=== PATIENT | male | born 1980 | race Caucasian/White ===

== ENCOUNTER → 2018-07-03 12:24 | Outpatient (CLI) | payer SELFPAY ==
--- NOTE | 2018-07-03 12:26 | DI.RAD.S_ITS ---
PROCEDURE: XR CHEST 2V INDICATIONS: shortness of breath TECHNIQUE: 2 views of the chest were acquired. COMPARISON: None. FINDINGS: Surgical changes and devices: None. Lungs and pleura: No pleural effusions or pneumothorax. Mild pulmonary vascular congestion is seen. No definite focal infiltrate. Mediastinum: Mediastinal contours are normal. Heart size is mildly enlarged. Bones and chest wall: No suspicious bony abnormalities. Soft tissues appear unremarkable. IMPRESSION: Mild congestion. No focal infiltrate, pleural effusion or pneumothorax. Dictated by: Maxx Andrew M.D. on 07/03/2018 at 12:49 Approved by: Maxx Andrew M.D. on 07/03/2018 at 12:49
== END ==
PROVIDERS: Visit Provider Physician Assistant
DX: R06.02 Shortness of breath (principal); R09.89 Other specified symptoms and signs involving the circulatory and respiratory systems
CPT/HCPCS: 71046

== ENCOUNTER → 2018-07-15 17:59 | Outpatient (CLI) | payer SELFPAY ==
[2018-07-15 19:01] LABS: Alanine Aminotransferase 23 IU/L (21-72); Albumin 4.6 g/dL (3.5-5.0); Albumin Globulin Ratio 1.8 (1.0-2.8); Alkaline Phosphatase 72 U/L (38-126); Aspartate Aminotransferase 20 IU/L (17-59); Bilirubin Total 0.2 mg/dL (0.2-1.3); Blood Urea Nitrogen 12 mg/dL (9-20); Calcium 9.6 mg/dL (8.4-10.2); Carbon Dioxide 27 mmol/L (22-32); Chloride 101 mmol/L (98-107); Estimated Glomerular Filt Rate > 60.0 mL/min (>60); Globulin 2.5 g/dL (1.7-4.1); Glucose 95 mg/dL (70-100); HEMOLYSIS < 15 (0-50); Sodium 141 mmol/L (137-145); Total Protein 7.1 g/dL (6.3-8.2)
[2018-07-15 19:04] LABS: Hematocrit 27.8 % (41-53); Mean Corpuscular HGB Conc 32.2 % (30-36); Mean Corpuscular Hemoglobin 22.6 PG (26-34); Mean Corpuscular Volume 70.2 fL (80-100); Platelet Count 280 X10^3/uL (150-400); Red Blood Cell Count 3.97 X10^6/uL (4.5-5.9); Red Cell Distribution Width 23.5 % (11.6-14.8); White Blood Cell Count 4.7 X10^3/uL (4.5-11.0)
[2018-07-15 19:13] LABS: INR 0.9 (0.9-1.3); Prothrombin Time 10.6 SECONDS (10.1-12.7)
[2018-07-15 19:16] LABS: PTT Partial Thromboplastin Tim 24 SECONDS (26.4-36.2)
[2018-07-15 19:17] LABS: HEMOLYSIS < 15 (0-50); Iron 42 ug/dL (49-181)
[2018-07-15 19:27] LABS: Percent Iron Saturation 9 % (20-50); Total Iron Binding Capacity 471 ug/dL (261-462); Transferrin 408 mg/dL (206-381)
[2018-07-15 19:42] LABS: Neutrophils Absolute Manual 2444 /uL (3000-5900); Total Cells Counted 50
[2018-07-15 19:43] LABS: Anisocytosis 3+; Hypochromasia 1+; Microcytosis 2+; Poikilocytosis 4+; Tear Drop Cells 1+
[2018-07-15 19:44] LABS: Ovalocytes 3+; Schistocytes 2+
[2018-07-15 19:48] LABS: Vitamin B12 644 pg/mL (239-931)
== END ==
PROVIDERS: Visit Provider Physician Assistant
DX: D64.9 Anemia, unspecified (principal)
CPT/HCPCS: 36415; 80053; 82607; 83540; 83550; 85025; 85610; 85730

== ENCOUNTER → 2018-07-18 12:37 | Outpatient (CLI) | payer SELFPAY ==
[2018-07-19 00:15] LABS: Ferritin 6.8 ng/mL (17.9-464)
== END ==
PROVIDERS: Visit Provider Physician Assistant
DX: D50.9 Iron deficiency anemia, unspecified (principal)
CPT/HCPCS: 82728

== ENCOUNTER → 2018-08-03 15:05 | Oncology outpatient (ONC) | payer SELFPAY ==
[2018-08-03 15:57] VITALS: BP 129/70; PULSE 64; RESP 16; TEMP 36.7; O2SAT 97
--- NOTE | 2018-08-03 16:18 | ONC.CONS ---
History of Present Illness - Data of Consult Consult date: 08/03/18 Primary Care Provider: Raquel Smith PA-C - Consult Narrative Narrative: Diagnosis: Iron deficiency anemia History of present illness: Lori Yeung is a 37 year old male who is referred for further evaluation of iron deficiency anemia. The patient reports that he had not seen a physician for many years. Over the last several months, he had notice some gradually increasing dyspnea on exertion, fatigue and weakness. 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 He felt like he was not able to do his normal activities is easily as previously. In May, he developed some worsening shortness of breath and sought medical attention. He had a chest x-ray done that showed a possible infiltrate was treated for a pneumonia with antibiotics. He then traveled [place]. While there, his symptoms did not improve and in fact worsened. He was seen at a walk-in clinic there. He had an x-ray done that appeared clear. He also had a CBC done that showed a marked anemia with a hemoglobin of 5. His white count was slightly low at 2.6. Platelets were normal. He was hospitalized and transfused 3 units of red cells. He also started taking oral iron. Other testing included normal B12 and folate. TSH was normal. He had an upper and lower endoscopy that did not disclose any source of bleeding but did show some hemorrhoids. He had an echocardiogram that was normal. At the time of his hospital discharge, his hemoglobin was around 8. He was discharged on oral iron 1 tablet daily. He did follow up with his primary physician about 2 weeks after his hospitalization and his hemoglobin was up to 9.0 with hematocrit of 27.8. His white count was normal at 4.7 and platelets were 280,000. In retrospect, he notes that he did have a little bit of a bleeding from the hemorrhoids almost daily for about 3 years. Since his hospitalization though, he has not had any further bleeding. He has been tolerating the iron well except for some mild constipation. He denies any abdominal pain or nausea. He has not been aware of any other bleeding. He has never required a transfusion prior to this. He was not taking any medications regularly. His past medical history is only notable for prior hernia repair. Family history is negative for anemia or blood dyscrasias. Social history: He is . 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 He does not smoke but does have occasional alcohol use. His only medications are iron and a multivitamin now. CC: Brandon Brady MD Home Medications and Allergies Home Medications Medication Instructions Recorded Confirmed Type ferrous sulfate 325 mg (65 mg 325 mg PO DAILY tab 07/15/18 07/18/18 History iron) tablet lysine 500 mg PO DAILY 08/03/18 08/03/18 History multivitamin 1 tab PO DAILY 08/03/18 08/03/18 History Allergies Allergy/AdvReac Type Severity Reaction Status Date / Time No Known Drug Allergies Allergy Verified 07/18/18 12:06 Medical History - Social History Smoking Status: Never smoker Review of Systems - Patient Self-Reported Symptoms SR Constitution: Fatigue/Malaise SR ears, nose, mouth, throat issues: Congestion SR Cardiovascular issues: Palpitations, Shortness of breath with activity or lying flat, Dizzy/lightheaded SR Gastrointestinal issues: Diarrhea, Blood in stool SR Musculoskeletal issues: Cold hands or feet SR Neuro issues: Headache, Lightheaded/dizzy Constitutional: no weight loss Ears, nose, mouth, throat: lightheadedness Cardiovascular: dyspnea on exertion Respiratory: shortness of breath Gastrointestinal: hemorrhoids Exam - Constitutional positive no acute distress, positive average body habitus - Routine HEENT Exam Head: Present: normocephalic, atraumatic Eye: Present: EOMI, PERRL. Absent: conjunctival icterus, scleral injection ENT: Present: mucous membranes moist, oropharynx clear, dentition normal - Routine Neck Exam Present: supple. Absent: lymphadenopathy, thyromegaly - Routine Chest/Breast/Axilla Exam Axillae: Absent: lymphadenopathy - Routine Respiratory Exam Present: Clear to auscultation bilaterally. Absent: rales, wheezes - Routine Cardiovascular Exam Present: RRR, S1, S2. Absent: murmur - Routine Abdominal Exam Present: soft, normoactive bowel sounds. Absent: tenderness, organomegaly, mass - Routine Extremities Exam Absent: cyanosis, clubbing, edema - Routine Back/Spine Exam Back/Spine: Absent: paraspinal tenderness, vertebral tenderness - Routine Skin Exam Present: intact. Absent: petechiae, rash - Routine Neurological Exam Present: alert, oriented X3 - Routine Psychiatric Exam Present: normal affect, normal thought process Results - Labs On July 15, his white count was 4.7 hemoglobin 9.0 hematocrit 27.8 with an MCV of 78 platelets were 280,000. B12 was normal. His creatinine was 0.8. In June his ferritin had been 6. Assessment and Plan (1) Iron deficiency anemia Current visit: No Status: Acute A 37-year-old man with new diagnosis of iron deficiency anemia. The cause appears to be hemorrhoidal bleeding. He did have a GI evaluation and no other cause of bleeding was seen. He appears to be responding well to oral iron and absorbing it without difficulty. Symptomaticly, he has continued to improve. Will recheck his CBC as well as a ferritin and reticulocyte count. He should continue his iron for a few months after his hemoglobin is normalized. I did make referral to general surgeon for treatment of his hemorrhoids to prevent further bleeding. He did have a transient decrease in his white count that I think was probably related to a viral infection. It seems to have resolved. I have not scheduled a follow-up appointment for him here but would be happy to see him again in the future should new questions arise.
--- NOTE | 2018-08-05 16:16 | PC.NURSE ---
Per Dr Brady, Pt was advised that H/H is improving but not quite normal yet. He requested he remain on iron with a redraw in 6-8 weeks.
== END ==
PROVIDERS: PCP Physician Assistant
DX: D50.9 Iron deficiency anemia, unspecified (principal)
CPT/HCPCS: 99204; 99214

== ENCOUNTER → 2018-08-03 16:32 | Outpatient (CLI) | payer SELFPAY ==
[2018-08-03 17:33] LABS: Add Manual Diff / Slide Review NO; Basophils Absolute Auto 100 /uL (0-100); Basophils Percent Auto 1.3 % (0-2); Eosinophils Absolute Auto 100 /uL (0-450); Eosinophils Percent Auto 1.7 % (2-4); Hemoglobin 10.9 g/dL (13.5-17.5); Lymphocytes Absolute Auto 1400 /uL (1100-4500); Lymphocytes Percent Auto 32.3 % (25-40); Mean Corpuscular HGB Conc 31.3 % (30-36); Mean Corpuscular Hemoglobin 22.9 PG (26-34); Mean Corpuscular Volume 73.2 fL (80-100); Monocytes Absolute Auto 500 /uL (0-900); Neutrophils Absolute Auto 2300 /uL (1500-7000); Neutrophils Percent Auto 52.7 % (50-75); Platelet Count 378 X10^3/uL (150-400); Red Blood Cell Count 4.78 X10^6/uL (4.5-5.9); Red Cell Distribution Width 25.3 % (11.6-14.8); White Blood Cell Count 4.4 X10^3/uL (4.5-11.0)
[2018-08-03 17:40] LABS: Reticulocyte Count, Percent 1.4 % (0.87-2.60)
[2018-08-03 17:48] LABS: Anisocytosis 3+; Helmet Cells 1; Ovalocytes 1+; Poikilocytosis 2+
[2018-08-03 18:12] LABS: Ferritin 6.9 ng/mL (17.9-464)
== END ==
PROVIDERS: PCP Physician Assistant
DX: D50.9 Iron deficiency anemia, unspecified (principal)
CPT/HCPCS: 36415; 82728; 85025; 85045

== ENCOUNTER → 2018-09-06 11:50 | Outpatient (CLI) | payer SELFPAY ==
[2018-09-06 12:28] LABS: Hematocrit 34.6 % (41-53); Hemoglobin 10.7 g/dL (13.5-17.5)
== END ==
PROVIDERS: PCP Physician Assistant; Visit Provider Physician Assistant
DX: D50.9 Iron deficiency anemia, unspecified (principal)
CPT/HCPCS: 36415; 85014; 85018

== ENCOUNTER 2018-10-20 13:37 | Day surgery (SDC) | payer SELFPAY ==
[2018-10-19 09:16] VITALS: BMI 27.7
[2018-10-20] VITALS (12 sets, daily range): BP systolic 106–118; BP diastolic 47–67; PULSE 54–69; RESP 13–20; TEMP 36.6–36.7; O2SAT 90–99; BMI 27.7
[2018-10-20] MEDS: LACTATED RINGERS 1,000 ML 42 ML IV (14:15)
--- NOTE | 2018-10-20 15:32 | PM.PREOP ---
Pre-operative Note Interval Note History & Physical reviewed/Exam performed by Physician: Yes Changes to H&P: No
[2018-10-20] MEDS: CEFOTETAN 2 GM/50 ML PIGGYBACK IV (16:08)
--- NOTE | 2018-10-20 16:20 | SUR.OPER ---
Lateral on padded OR bed, head on pillow, gel axillary roll in place, bottom leg bent with gel pad under knee to foot, upper leg straight and supported with pillows. Upper arm supported by pillows and secured over bottom arm to padded arm board. Safety belt at hip, tape over blanket lower legs.THIS POSITION FOR HEMORRHOID BANDING .
--- NOTE | 2018-10-20 16:21 | SUR.OPER ---
Supine on padded OR bed, head on pillow, arms secured on padded arm boards at <90 degrees abduction, legs uncrossed, safety belt at thigh, tape over blanket over lower legs.REPOSITIONED TO SUPINE AFTER HEMORRHOID BANDING.
[2018-10-20] MEDS: BUPIVACAINE 0.5% (PF) VIAL 30 ML INJ (16:25)
--- NOTE | 2018-10-20 17:11 | PM.OP.1 ---
Operative Date/Time/Diagnoses Date of procedure: 10/20/18 Time of procedure: 17:11 Pre-op diagnosis: Internal hemorrhoids with bleeding. left inguinal hernia reducible Post-op diagnosis: same Procedure & Clinicians Procedure: Anoscopy with hemorrhoid banding. Plug and patch repair of left inguinal hernia. Same procedure as scheduled: Yes Indications: Anemia due to hemorrhoids. Symptomatic left inguinal hernia. Surgeon: Brodie Skinner Click Yes if Unassisted: Yes Anesthesia Type: General Operative Notes Findings: Very large internal hemorrhoids. Three columns banded. Indirect left inguinal hernia with weakness of the floor. Closure Type: primary Specimen(s): none sent Prosthetic devices, grafts, tissues, transplants, or devices: Mesh Estimated Blood Loss (mL): 5 Blood products transfused: none Procedure in detail: Patient was placed supine on the operating table underwent general LMA anesthesia. He was placed in left lateral decubitus position and an anoscope inserted. Patient was noted to have multiple large hemorrhoids. Some had evidence of very friable mucosa and bleeding. I banded 3 large columns. The scope was removed. patient is placed supine on the bed. He was prepped and draped in the usual fashion for left inguinal hernia repair. Local anesthetic was infiltrated overlying the internal ring. Transverse incision was made in that region. It was carried down the level of the external oblique. The external oblique was opened parallel with its fibers through the external ring. Cord structures were elevated the cremaster open proximally. There was an indirect sac identified. It was from surrounding structures. His open found to have no contents. It was suture ligated with 2 0 silk at the level the deep epigastric vessels. the stump was allowed to retract. A small plug was placed in the defect created and it was tacked into place with interrupted Tycron sutures. the cremaster was closed with interrupted [id number] 3 0 Vicryl. Patch was placed across the floor and tacked at the pubic tubercle, the posterior lamella the anterior rectus sheath, the ileal inguinal ligament and superior and lateral the cord. The opening in the mesh had to be enlarged so as not to constrict the cord structures. the external oblique was then closed with a running 330 Vicryl. the subcu was closed with interrupted 4 0 Vicryl and skin was closed running 4 0 Vicryl subcuticular stitch and Steri-Strips. dressing was applied the testicle was pulled down and the patient was awakened taken recovery room good condition. Complications: none Condition: stable Disposition: PACU Plan for aftercare: Patient has postop follow-up
[2018-10-20] MEDS: fentaNYL 100 MCG/2 ML INJ 50 MCG IV ×2 (17:33→17:49)
--- NOTE | 2018-10-20 17:35 | SUR.PHASEI ---
report given to Jenna STEPHENSON, VSS, just medicated with 50 mcg fentanyl, will monitor.
--- NOTE | 2018-10-20 17:43 | SUR.PHASEI ---
1733: assumed care of pt. Report received from Sinai Quesada RN
[2018-10-20] MEDS: OXYCODONE/ACETAMINOPHEN 5/325 TABLET 1 TAB PO ×2 (17:53→18:24)
--- NOTE | 2018-10-20 17:58 | SUR.PHASEII ---
Pt moved to phase 2 but continued EKG monitoring until 20 min after last IV narcotic which was at 1749.
== END 2018-10-20 19:00 | disposition home or self-care (01) ==
PROVIDERS: PCP Physician Assistant; Visit Provider Specialist
PROC: (CPT 49505; principal; 2018-10-20 14:30)
PROC: 0DJD8ZZ Inspection of Lower Intestinal Tract, Via Natural or Artificial Opening Endoscopic (ICD-10-PCS; CPT 45378; 2018-10-20 14:30)
DX: K40.90 Unilateral inguinal hernia, without obstruction or gangrene, not specified as recurrent (principal); K64.8 Other hemorrhoids; D64.9 Anemia, unspecified
CPT/HCPCS: 49505; 46221; C1781; J1100; J2250; J2405; J2704; J3010

== ENCOUNTER → 2019-01-04 09:31 | Outpatient (CLI) | payer SELFPAY ==
[2019-01-04 10:32] LABS: Hematocrit 43.3 % (41-53); Hemoglobin 13.6 g/dL (13.5-17.5)
== END ==
PROVIDERS: PCP Physician Assistant; Visit Provider Specialist
DX: D50.9 Iron deficiency anemia, unspecified (principal)
CPT/HCPCS: 36415; 85014; 85018

== ENCOUNTER 2021-09-03 14:30 | Outpatient (RCR) | payer OTHER, MEDICAID, SELFPAY ==
--- NOTE | 2021-05-23 13:13 | PT.OIE ---
Current Diagnoses Brachial plexus disorders (05/23/21) Past Medical History (Last Reviewed 10/19/18 @ 15:04 by Brodie Skinner MD) Acute hemorrhoid Anemia Hernia Hx of left inguinal hernia repair Iron deficiency Past Surgical History (Last Reviewed 10/19/18 @ 15:04 by Brodie Skinner MD) Hx of left inguinal hernia repair Visit Care Team Role Provider Type Sylvie Milner ND Attending Provider Non-Staff Primary Care Provider Referring Provider Specialty: Naturopathy Address: [facility], [address] [place] [address], [facility] Email: Physical Therapy Initial Evaluation PT-OP-A Visit Information Start: 05/23/21 09:05 Freq: Status: Active Protocol: Document 05/23/21 12:37 HH (Rec: 05/23/21 13:13 HH [email or web address]) Out-Patient Physical Therapy Visit Information Visit Information Visit Type Initial Evaluation Visit Start Time 10:30 Visit Stop Time 11:15 Total Visit Minutes 45 Visit Number 08/11 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 He started experiencing radiating numbness/ tingling from his tricep, forearm to his dorsal side of the middle 3 fingers. Symptoms tend to present when he is stationary or with his arms overhead for a long period of time. He also notices significant weakness on elbow extension while doing bench press. No discomfort with sleeping. 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 He also weightlift 4 times/ wk who likes to overhead press, bench press and squat. 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 PT-OP-C Subjective Start: 05/23/21 09:05 Freq: Status: Active Protocol: Document 05/23/21 12:37 HH (Rec: 05/23/21 13:13 [email or web address]) Patient Questionnaires Quick Dash- Upper Extremity Quick Dash UE Score 15.9 Quick Dash UE Impairment 1 to 19% Impaired (Score 1-19) OP-PT Pain Assessment Location R shoulder Pain Location Details tricep to forearm Intensity 4 Scale Used Numeric (0 - 10) Description Radiating Frequency Intermittent Pain Aggravating Factors Activity PT-OP-F Manual Assessment Start: 05/23/21 09:05 Freq: Status: Active Protocol: Document 05/23/21 12:37 HH (Rec: 05/23/21 13:13 [email or web address]) Manual Assessments Soft Tissue Assessment Soft Tissue Mobility Assessment significant hypertonicty at levator scap, upper trap and teres minor. PT-OP-H Neuro Start: 05/23/21 09:05 Freq: Status: Active Protocol: Document 05/23/21 12:37 HH (Rec: 05/23/21 13:13 [email or web address]) Sensation Evaluation Gross Sensation Gross Sensation WNL Sensation Description Numbness,Tingling Dermatome Impairments C7,C8 Deep Tendon Reflex & Clonus Assessment Deep Tendon Reflex Bilateral Brachioradialis Deep Tendon Reflex 2+ Normal Bilateral Tricep Deep Tendon Reflex 2+ Normal Bilateral Bicep Deep Tendon Reflex 2+ Normal PT-OP-K Range of Motion Start: 05/23/21 09:05 Freq: Status: Active Protocol: Document 05/23/21 12:37 HH (Rec: 05/23/21 13:13 [email or web address]) Cervical Spine Range of Motion Cervical Spine Active Degrees Testing Position Sitting Flexion 63 Extension 50 Rotation Left 75 Rotation Right 55 Lateral Flexion Left 40 Lateral Flexion Right 33 ROM Limitations Pain Comments extension reproduces neuro sign end range rotation and lateral flexion to R reproduces neuro sign Shoulder Goniometric Range of Motion Shoulder Right Shoulder ROM WFL Yes Comments no symptoms Left Shoulder ROM WFL Yes Comments no symptoms PT-OP-L Special Tests Start: 05/23/21 09:05 Freq: Status: Active Protocol: Document 05/23/21 12:37 HH (Rec: 05/23/21 13:13 [email or web address]) Special Tests Cervical Spine Special Tests leela test Test Results +VE B Comments both hands gets cold and cramp . Foraminal Compression Test Results +ve Comments significant increase neuro sign to R Upper Limb Tension Test Test Results +VE Radial Comments significant increase neuro sign to R Spurling's Test Test Results +VE Comments significant increase neuro sign to R Traction Comments report of slight increased neuro sign PT-OP-M Strength Start: 05/23/21 09:05 Freq: Status: Active Protocol: Document 05/23/21 12:37 (Rec: 05/23/21 13:13 [email or web address]) Cervical Spine Strength Cervical Spine Manual Muscle Testing Comments WFL Shoulder Strength Shoulder Manual Muscle Testing Right Flexion 5 Normal Extension 5 Normal Abduction (C5) 5 Normal Adduction 5 Normal Left Flexion 5 Normal Extension 5 Normal Abduction (C5) 5 Normal Adduction 5 Normal Elbow/Forearm Strength Elbow and Forearm Manual Muscle Testing Right Flexion (C6) 5 Normal Extension (C7) 4- Good- Left Flexion (C6) 5 Normal Extension (C7) 5 Normal Wrist Strength Wrist Manual Muscle Testing Right Flexion (C7) 5 Normal Extension (C6) 5 Normal Ulnar Deviation 5 Normal Radial Deviation 5 Normal Left Flexion (C7) 5 Normal Extension (C6) 5 Normal Ulnar Deviation 5 Normal Radial Deviation 5 Normal PT-OP-Q Treatments Start: 05/23/21 09:05 Freq: Status: Active Protocol: Document 05/23/21 12:37 (Rec: 05/23/21 13:13 [email or web address]) Therapeutic Exercises Standing Exercises tennis ball release Standing Exercise Name teres minor Side right Comments for HEP levator scap stretch Side right Reps/Minutes 30 s hold x 5 Comments for HEP upper trap stretch Side right Reps/Minutes 30 s hold x 5 Comments for HEP PT-OP-T Assessment and Plan Start: 05/23/21 09:05 Freq: Status: Active Protocol: Document 05/23/21 12:37 (Rec: 05/23/21 13:13 [email or web address]) Physical Therapy Assessment Rehab Potential Rehabilitation Potential Excellent Evaluation Complexity Number of Personal Factors/Comorbidities 0 Number of Body Systems Impaired 1-2 Clinical Presentation at Evaluation Stable Impairments Impairments Functional Activities, Functional Mobility,Pain, Posture,ROM,Sensation,Soft Tissue Mobility,Strength Goals cervical ROM Impairment limited cervical ROM Short Term Goal (STG) pt will show improved cervical AROM by 10 degrees without neuro sign STG Duration 4 weeks Custodial Goal (LTG) pt will be able to look up and to the side for long period of time at work without increased symptoms LTG Duration 8 weeks neuro sign Impairment numbness/ tingling to elbow and hand Short Term Goal (STG) pt will show improved neural tension to radial nerve therefore he will not experience neuro sign while reaching overhead/ sitting. STG Duration 4 weeks Hogshead Builder Goal (LTG) pt will regain full 5/5 elbow extension strength which allows him to perform bench press 200lbs again. LTG Duration 8 weeks quickdash Impairment pt scores 15.9 on quickdash Short Term Goal (STG) pt will show improved mobility and strength to score <10 on quickdash STG Duration 4 weeks Hogshead Builder Goal (LTG) pt will show improved mobility and strength to score <5 on quickdash which allows him to perform his work duties without increased discomfort LTG Duration 8 weeks Assessment Summary Assessment Lori is a 40 yo male here for his radiating pain to R arm since this summer. Upon assessment, pt presents signs of cervical radiculopathy and brachial plexus injury possible d/t his job nature with repetitive overhead activities. He presents neuro sign with cervical closed pack position at a C7 myotome level which weaken his elbow extension 4-/5, along with tingling and numbness in radial nerve and axillary nerve pattern (posterior cord of brachial plexus). 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 Physical Therapy Plan Frequency and Duration Frequency of Treatment 1x/Week Duration of Treatment 8 weeks Plan of Care Start Date 05/23/21 Plan of Care End Date 07/22/21 Therapeutic Interventions Therapeutic Interventions Home Exercise Program,Joint Mobilizations,Manual Therapy, Neuromuscular Re-education, Patient/Caregiver Education, Self-Care/Home Management,Soft Tissue Mobilization,Taping, Therapeutic Activities, Therapeutic Exercises Modalities Cold Pack/Ice Massage,Electric Stimulation,Hot Packs, Traction- Mechanical, Ultrasound Next Visit Focus/Plan Next Note Type Treatment Note Next Visit Plan check stretches traction, nerve glide STM on teres minor, scalenes, upper trap and levator
--- NOTE | 2021-05-23 13:13 | PT.OPPOC ---
Physical, Occupational & Speech Therapy At [facility] Current Diagnoses Brachial plexus disorders (05/23/21) Visit Care Team Role Provider Type Sylvie Milner ND Attending Provider Non-Staff Primary Care Provider Referring Provider Specialty: Naturopathy Address: [facility], [address] [place] [address], [id number] Email: Plan Of Care PT-OP-T Assessment and Plan Start: 05/23/21 09:05 Freq: Status: Active Protocol: Document 05/23/21 12:37 (Rec: 05/23/21 13:13 [email or web address]) Physical Therapy Assessment Rehab Potential Rehabilitation Potential Excellent Evaluation Complexity Number of Personal Factors/Comorbidities 0 Number of Body Systems Impaired 1-2 Clinical Presentation at Evaluation Stable Impairments Impairments Functional Activities, Functional Mobility,Pain, Posture,ROM,Sensation,Soft Tissue Mobility,Strength Goals cervical ROM Impairment limited cervical ROM Short Term Goal (STG) pt will show improved cervical AROM by 10 degrees without neuro sign STG Duration 4 weeks Half-Way Goal (LTG) pt will be able to look up and to the side for long period of time at work without increased symptoms LTG Duration 8 weeks neuro sign Impairment numbness/ tingling to elbow and hand Short Term Goal (STG) pt will show improved neural tension to radial nerve therefore he will not experience neuro sign while reaching overhead/ sitting. STG Duration 4 weeks Rn Bsn Goal (LTG) pt will regain full 5/5 elbow extension strength which allows him to perform bench press 200lbs again. LTG Duration 8 weeks quickdash Impairment pt scores 15.9 on quickdash Short Term Goal (STG) pt will show improved mobility and strength to score <10 on quickdash STG Duration 4 weeks Rn Bsn Goal (LTG) pt will show improved mobility and strength to score <5 on quickdash which allows him to perform his work duties without increased discomfort LTG Duration 8 weeks Assessment Summary Assessment Lori is a 40 yo male here for his radiating pain to R arm since this summer. Upon assessment, pt presents signs of cervical radiculopathy and brachial plexus injury possible d/t his job nature with repetitive overhead activities. He presents neuro sign with cervical closed pack position at a C7 myotome level which weaken his elbow extension 4-/5, along with tingling and numbness in radial nerve and axillary nerve pattern (posterior cord of brachial plexus). 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 Physical Therapy Plan Frequency and Duration Frequency of Treatment 1x/Week Duration of Treatment 8 weeks Plan of Care Start Date 05/23/21 Plan of Care End Date 07/22/21 Therapeutic Interventions Therapeutic Interventions Home Exercise Program,Joint Mobilizations,Manual Therapy, Neuromuscular Re-education, Patient/Caregiver Education, Self-Care/Home Management,Soft Tissue Mobilization,Taping, Therapeutic Activities, Therapeutic Exercises Modalities Cold Pack/Ice Massage,Electric Stimulation,Hot Packs, Traction- Mechanical, Ultrasound Next Visit Focus/Plan Next Note Type Treatment Note Next Visit Plan check stretches traction, nerve glide STM on teres minor, scalenes, upper trap and levator Plan of Care Dates Plan of Care Start Date 05/23/21 Plan of Care End Date 07/22/21 Electronically Signed by: Chapincito Boss, PT 05/23/21 [id number] Please Sign and Return: I have reviewed this Plan of Care and certify that the skilled therapy services above are required to meet the patient?s needs. Physician Signature Date Printed Name and Credentials Clinical Instructor Signature Printed Name and Credentials
--- NOTE | 2021-05-28 12:06 | PT.OTN ---
Current Diagnoses Brachial plexus disorders (05/28/21) Physical Therapy Treatment Note PT-OP-A Visit Information Start: 05/23/21 09:05 Freq: Status: Active Protocol: Document 05/28/21 08:13 (Rec: 05/28/21 12:06 [id number]) Out-Patient Physical Therapy Visit Information Visit Information Visit Type Treatment Note Visit Start Time 09:00 Visit Stop Time 09:44 Total Visit Minutes 44 Visit Number 09/11 Number of DEHYDROGENATION CONVERTER OPERATOR Visits 0 PT-OP-B Current Condition Start: 05/23/21 09:05 Freq: Status: Active Protocol: Document 05/23/21 12:37 HH (Rec: 05/23/21 13:13 [email or web address]) Current Condition History of Current Condition Onset Date this summer Current Complaints R arm radiating pain with neuro sign History of Current Condition Radha is a 40yo male here for his radiating pain and neuro sign to R arm started this summer with no known injury. He started experiencing radiating numbness/ tingling from his tricep, forearm to his dorsal side of the middle 3 fingers. Symptoms tend to present when he is stationary or with his arms overhead for a long period of time. He also notices significant weakness on elbow extension while doing bench press. No discomfort with sleeping. 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 He also weightlift 4 times/ wk who likes to overhead press, bench press and squat. 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 PT-OP-C Subjective Start: 05/23/21 09:05 Freq: Status: Active Protocol: Document 05/28/21 08:13 (Rec: 05/28/21 12:06 [id number]) OP-PT Subjective Patient Comments Patient Comments my symptoms are around the same. Josselin been doing the stretches and it feels not bad . I still have trouble benching. I can only do 60lbs single arm bench press on my R x 5times. Patient Reported Progress Same PT-OP-F Manual Assessment Start: 05/23/21 09:05 Freq: Status: Active Protocol: Document 05/23/21 12:37 HH (Rec: 05/23/21 13:13 [email or web address]) Manual Assessments Soft Tissue Assessment Soft Tissue Mobility Assessment significant hypertonicty at levator scap, upper trap and teres minor. PT-OP-H Neuro Start: 05/23/21 09:05 Freq: Status: Active Protocol: Document 05/23/21 12:37 HH (Rec: 05/23/21 13:13 HH [email or web address]) Sensation Evaluation Gross Sensation Gross Sensation WNL Sensation Description Numbness,Tingling Dermatome Impairments C7,C8 Deep Tendon Reflex & Clonus Assessment Deep Tendon Reflex Bilateral Brachioradialis Deep Tendon Reflex 2+ Normal Bilateral Tricep Deep Tendon Reflex 2+ Normal Bilateral Bicep Deep Tendon Reflex 2+ Normal PT-OP-K Range of Motion Start: 05/23/21 09:05 Freq: Status: Active Protocol: Document 05/23/21 12:37 HH (Rec: 05/23/21 13:13 [email or web address]) Cervical Spine Range of Motion Cervical Spine Active Degrees Testing Position Sitting Flexion 63 Extension 50 Rotation Left 75 Rotation Right 55 Lateral Flexion Left 40 Lateral Flexion Right 33 ROM Limitations Pain Comments extension reproduces neuro sign end range rotation and lateral flexion to R reproduces neuro sign Shoulder Goniometric Range of Motion Shoulder Right Shoulder ROM WFL Yes Comments no symptoms Left Shoulder ROM WFL Yes Comments no symptoms PT-OP-L Special Tests Start: 05/23/21 09:05 Freq: Status: Active Protocol: Document 05/23/21 12:37 HH (Rec: 05/23/21 13:13 [email or web address]) Special Tests Cervical Spine Special Tests leela test Test Results +VE B Comments both hands gets cold and cramp . Foraminal Compression Test Results +ve Comments significant increase neuro sign to R Upper Limb Tension Test Test Results +VE Radial Comments significant increase neuro sign to R Spurling's Test Test Results +VE Comments significant increase neuro sign to R Traction Comments report of slight increased neuro sign PT-OP-M Strength Start: 05/23/21 09:05 Freq: Status: Active Protocol: Document 05/23/21 12:37 HH (Rec: 05/23/21 13:13 [email or web address]) Cervical Spine Strength Cervical Spine Manual Muscle Testing Comments WFL Shoulder Strength Shoulder Manual Muscle Testing Right Flexion 5 Normal Extension 5 Normal Abduction (C5) 5 Normal Adduction 5 Normal Left Flexion 5 Normal Extension 5 Normal Abduction (C5) 5 Normal Adduction 5 Normal Elbow/Forearm Strength Elbow and Forearm Manual Muscle Testing Right Flexion (C6) 5 Normal Extension (C7) 4- Good- Left Flexion (C6) 5 Normal Extension (C7) 5 Normal Wrist Strength Wrist Manual Muscle Testing Right Flexion (C7) 5 Normal Extension (C6) 5 Normal Ulnar Deviation 5 Normal Radial Deviation 5 Normal Left Flexion (C7) 5 Normal Extension (C6) 5 Normal Ulnar Deviation 5 Normal Radial Deviation 5 Normal PT-OP-Q Treatments Start: 05/23/21 09:05 Freq: Status: Active Protocol: Document 05/28/21 08:13 (Rec: 05/28/21 12:06 [id number]) Therapeutic Exercises Supine Exercises chin tuck Reps/Minutes 10 x2 Comments for hep Standing Exercises radial nerve glide Side right Reps/Minutes 10 x1 Comments for HEP levator scap stretch Side right Reps/Minutes 30 s hold x 5 Comments for HEP upper trap stretch Side right Reps/Minutes 30 s hold x 5 Comments for HEP Manual Therapy Treatment Soft Tissue Mobilization RTC Body Location teres minor Mobilization Type Myofascial Release,Sustained Pressure,Trigger Point Release Intensity/Depth Moderate Body Position Supine Comments significant pain with neuro sign UT, levator Body Location +scalene Mobilization Type Myofascial Release,Sustained Pressure,Trigger Point Release Intensity/Depth Moderate Body Position Supine Comments mod pain with neuro sign suboccipital Mobilization Type Myofascial Release,Sustained Pressure,Trigger Point Release Intensity/Depth Moderate Body Position Supine Comments mod pain with neuro sign Manual Traction Cervical Body Position Supine Reps/Duration 10 s hold x10 Comments pt reports minimal neuro sign and relief Taping R shoulder Treatment Focus to provide stability Type of Tape Kinesio Tape Comments 3 I strips across shoulder joint, anchor from pecs, RTC and UT Nerve Glides radial nerve glide Nerve manual Body Position Supine PT-OP-T Assessment and Plan Start: 05/23/21 09:05 Freq: Status: Active Protocol: Document 05/28/21 08:13 (Rec: 05/28/21 12:06 [id number]) Physical Therapy Assessment Goals cervical ROM Impairment limited cervical ROM Short Term Goal (STG) pt will show improved cervical AROM by 10 degrees without neuro sign STG Duration 4 weeks Apparatus Repair Mechanic Goal (LTG) pt will be able to look up and to the side for long period of time at work without increased symptoms LTG Duration 8 weeks neuro sign Impairment numbness/ tingling to elbow and hand Short Term Goal (STG) pt will show improved neural tension to radial nerve therefore he will not experience neuro sign while reaching overhead/ sitting. STG Duration 4 weeks Jail Goal (LTG) pt will regain full 5/5 elbow extension strength which allows him to perform bench press 200lbs again. LTG Duration 8 weeks quickdash Impairment pt scores 15.9 on quickdash Short Term Goal (STG) pt will show improved mobility and strength to score <10 on quickdash STG Duration 4 weeks Jail Goal (LTG) pt will show improved mobility and strength to score <5 on quickdash which allows him to perform his work duties without increased discomfort LTG Duration 8 weeks Assessment Summary Assessment pt reports his symptoms get worse with stationary position . I do notice his neuro signs increases with any cervical movement, and traction of his R arm but resolve when his arm is supported/ in supine. He does find relief with cervical traction and STM at teres minor. might add prone elbow extension next time. Physical Therapy Plan Frequency and Duration Frequency of Treatment 1x/Week Duration of Treatment 8 weeks Plan of Care Start Date 05/23/21 Plan of Care End Date 07/22/21 Therapeutic Interventions Therapeutic Interventions Home Exercise Program,Joint Mobilizations,Manual Therapy, Neuromuscular Re-education, Patient/Caregiver Education, Self-Care/Home Management,Soft Tissue Mobilization,Taping, Therapeutic Activities, Therapeutic Exercises Modalities Cold Pack/Ice Massage,Electric Stimulation,Hot Packs, Traction- Mechanical, Ultrasound Next Visit Focus/Plan Next Note Type Treatment Note Next Visit Plan check stretches traction, nerve glide STM on teres minor, scalenes, upper trap and levator
--- NOTE | 2021-06-04 12:18 | PT.OTN ---
Current Diagnoses Brachial plexus disorders (06/04/21) Physical Therapy Treatment Note PT-OP-A Visit Information Start: 05/23/21 09:05 Freq: Status: Active Protocol: Document 06/04/21 09:04 (Rec: 06/04/21 12:18 [id number]) Out-Patient Physical Therapy Visit Information Visit Information Visit Type Treatment Note Visit Start Time 09:45 Visit Stop Time 10:30 Total Visit Minutes 45 Visit Number 3 Number of GENERAL OPERATOR Visits 0 PT-OP-B Current Condition Start: 05/23/21 09:05 Freq: Status: Active Protocol: Document 05/23/21 12:37 HH (Rec: 05/23/21 13:13 [email or web address]) Current Condition History of Current Condition Onset Date this summer Current Complaints R arm radiating pain with neuro sign History of Current Condition Radha is a 40yo male here for his radiating pain and neuro sign to R arm started this summer with no known injury. He started experiencing radiating numbness/ tingling from his tricep, forearm to his dorsal side of the middle 3 fingers. Symptoms tend to present when he is stationary or with his arms overhead for a long period of time. He also notices significant weakness on elbow extension while doing bench press. No discomfort with sleeping. 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 He also weightlift 4 times/ wk who likes to overhead press, bench press and squat. 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 PT-OP-C Subjective Start: 05/23/21 09:05 Freq: Status: Active Protocol: Document 06/04/21 09:04 (Rec: 06/04/21 12:18 [id number]) OP-PT Subjective Patient Comments Patient Comments I got a new baby. The stretches give me temporary relief but it usually comes back within an hour or two. The tape seems to help. Patient Reported Progress Improving PT-OP-F Manual Assessment Start: 05/23/21 09:05 Freq: Status: Active Protocol: Document 05/23/21 12:37 HH (Rec: 05/23/21 13:13 [email or web address]) Manual Assessments Soft Tissue Assessment Soft Tissue Mobility Assessment significant hypertonicty at levator scap, upper trap and teres minor. PT-OP-H Neuro Start: 05/23/21 09:05 Freq: Status: Active Protocol: Document 05/23/21 12:37 HH (Rec: 05/23/21 13:13 HH [email or web address]) Sensation Evaluation Gross Sensation Gross Sensation WNL Sensation Description Numbness,Tingling Dermatome Impairments C7,C8 Deep Tendon Reflex & Clonus Assessment Deep Tendon Reflex Bilateral Brachioradialis Deep Tendon Reflex 2+ Normal Bilateral Tricep Deep Tendon Reflex 2+ Normal Bilateral Bicep Deep Tendon Reflex 2+ Normal PT-OP-K Range of Motion Start: 05/23/21 09:05 Freq: Status: Active Protocol: Document 05/23/21 12:37 HH (Rec: 05/23/21 13:13 HH [email or web address]) Cervical Spine Range of Motion Cervical Spine Active Degrees Testing Position Sitting Flexion 63 Extension 50 Rotation Left 75 Rotation Right 55 Lateral Flexion Left 40 Lateral Flexion Right 33 ROM Limitations Pain Comments extension reproduces neuro sign end range rotation and lateral flexion to R reproduces neuro sign Shoulder Goniometric Range of Motion Shoulder Right Shoulder ROM WFL Yes Comments no symptoms Left Shoulder ROM WFL Yes Comments no symptoms PT-OP-L Special Tests Start: 05/23/21 09:05 Freq: Status: Active Protocol: Document 05/23/21 12:37 HH (Rec: 05/23/21 13:13 [email or web address]) Special Tests Cervical Spine Special Tests leela test Test Results +VE B Comments both hands gets cold and cramp . Foraminal Compression Test Results +ve Comments significant increase neuro sign to R Upper Limb Tension Test Test Results +VE Radial Comments significant increase neuro sign to R Spurling's Test Test Results +VE Comments significant increase neuro sign to R Traction Comments report of slight increased neuro sign PT-OP-M Strength Start: 05/23/21 09:05 Freq: Status: Active Protocol: Document 05/23/21 12:37 HH (Rec: 05/23/21 13:13 HH [email or web address]) Cervical Spine Strength Cervical Spine Manual Muscle Testing Comments WFL Shoulder Strength Shoulder Manual Muscle Testing Right Flexion 5 Normal Extension 5 Normal Abduction (C5) 5 Normal Adduction 5 Normal Left Flexion 5 Normal Extension 5 Normal Abduction (C5) 5 Normal Adduction 5 Normal Elbow/Forearm Strength Elbow and Forearm Manual Muscle Testing Right Flexion (C6) 5 Normal Extension (C7) 4- Good- Left Flexion (C6) 5 Normal Extension (C7) 5 Normal Wrist Strength Wrist Manual Muscle Testing Right Flexion (C7) 5 Normal Extension (C6) 5 Normal Ulnar Deviation 5 Normal Radial Deviation 5 Normal Left Flexion (C7) 5 Normal Extension (C6) 5 Normal Ulnar Deviation 5 Normal Radial Deviation 5 Normal PT-OP-Q Treatments Start: 05/23/21 09:05 Freq: Status: Active Protocol: Document 06/04/21 09:04 (Rec: 06/04/21 12:18 [id number]) Therapeutic Exercises Supine Exercises chin tuck Reps/Minutes 20x5 Comments for hep Sidelying Exercises open book Reps/Minutes 10x2 Comments for HEP, limited trunk rotation to R Standing Exercises suboccipital stretch Reps/Minutes 20s x 5 Comments for HEP, does report radiating symptoms Manual Therapy Treatment Soft Tissue Mobilization RTC Body Location teres minor Mobilization Type Myofascial Release,Sustained Pressure,Trigger Point Release Intensity/Depth Moderate Body Position Supine Comments significant pain with neuro sign UT, levator Body Location +scalene Mobilization Type Myofascial Release,Sustained Pressure,Trigger Point Release Intensity/Depth Moderate Body Position Supine Comments mod pain with neuro sign suboccipital Mobilization Type Myofascial Release,Sustained Pressure,Trigger Point Release Intensity/Depth Moderate Body Position Supine Comments mod pain with neuro sign Joint Mobilizations PA mob Joint T1-T4, PA and UPA Direction PA Grade II Body Position Prone Comments significant pain with radiating symptoms at T2-T4, but reduce after Manual Traction Cervical Body Position Supine Reps/Duration 10 s hold x10 Comments pt reports minimal neuro sign and relief consistently. Taping R shoulder Treatment Focus to provide stability Type of Tape Kinesio Tape Comments 3 I strips across shoulder joint, anchor from pecs, RTC and UT PT-OP-T Assessment and Plan Start: 05/23/21 09:05 Freq: Status: Active Protocol: Document 06/04/21 09:04 (Rec: 06/04/21 12:18 [id number]) Physical Therapy Assessment Goals cervical ROM Impairment limited cervical ROM Short Term Goal (STG) pt will show improved cervical AROM by 10 degrees without neuro sign STG Duration 4 weeks Penitentiary Goal (LTG) pt will be able to look up and to the side for long period of time at work without increased symptoms LTG Duration 8 weeks neuro sign Impairment numbness/ tingling to elbow and hand Short Term Goal (STG) pt will show improved neural tension to radial nerve therefore he will not experience neuro sign while reaching overhead/ sitting. STG Duration 4 weeks Concrete Block Molder Goal (LTG) pt will regain full 5/5 elbow extension strength which allows him to perform bench press 200lbs again. LTG Duration 8 weeks quickdash Impairment pt scores 15.9 on quickdash Short Term Goal (STG) pt will show improved mobility and strength to score <10 on quickdash STG Duration 4 weeks Penitentiary Goal (LTG) pt will show improved mobility and strength to score <5 on quickdash which allows him to perform his work duties without increased discomfort LTG Duration 8 weeks Assessment Summary Assessment pt reports his stretches gave him temporary relief only. Further assessment today shows he has very limited thoracic rotation to R with significant pain to R shoulder and hand. Traction gives him long lasting relief. Added chin tuck, chin tuck stretch and open book to his HEP. Physical Therapy Plan Frequency and Duration Frequency of Treatment 1x/Week Duration of Treatment 8 weeks Plan of Care Start Date 05/23/21 Plan of Care End Date 07/22/21 Therapeutic Interventions Therapeutic Interventions Home Exercise Program,Joint Mobilizations,Manual Therapy, Neuromuscular Re-education, Patient/Caregiver Education, Self-Care/Home Management,Soft Tissue Mobilization,Taping, Therapeutic Activities, Therapeutic Exercises Modalities Cold Pack/Ice Massage,Electric Stimulation,Hot Packs, Traction- Mechanical, Ultrasound Next Visit Focus/Plan Next Note Type Treatment Note Next Visit Plan check stretches traction, nerve glide STM on teres minor, scalenes, upper trap and levator
--- NOTE | 2021-06-18 10:37 | PT.OTN ---
Current Diagnoses Brachial plexus disorders (06/18/21) Physical Therapy Treatment Note PT-OP-A Visit Information Start: 05/23/21 09:05 Freq: Status: Active Protocol: Document 06/18/21 09:49 (Rec: 06/18/21 10:37 [id number]) Out-Patient Physical Therapy Visit Information Visit Information Visit Type Treatment Note Visit Start Time 09:46 Visit Stop Time 10:30 Total Visit Minutes 44 Visit Number 11/09 Number of HIDE MEASURING MACHINE OPERATOR Visits 0 PT-OP-B Current Condition Start: 05/23/21 09:05 Freq: Status: Active Protocol: Document 05/23/21 12:37 HH (Rec: 05/23/21 13:13 [email or web address]) Current Condition History of Current Condition Onset Date this summer Current Complaints R arm radiating pain with neuro sign History of Current Condition Radha is a 40yo male here for his radiating pain and neuro sign to R arm started this summer with no known injury. He started experiencing radiating numbness/ tingling from his tricep, forearm to his dorsal side of the middle 3 fingers. Symptoms tend to present when he is stationary or with his arms overhead for a long period of time. He also notices significant weakness on elbow extension while doing bench press. No discomfort with sleeping. 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 He also weightlift 4 times/ wk who likes to overhead press, bench press and squat. 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 PT-OP-C Subjective Start: 05/23/21 09:05 Freq: Status: Active Protocol: Document 06/18/21 09:49 HH (Rec: 06/18/21 10:37 [id number]) OP-PT Subjective Patient Comments Patient Comments I started noticing good improvements. My tingling and numbness is almost gone. Patient Reported Progress Improving PT-OP-F Manual Assessment Start: 05/23/21 09:05 Freq: Status: Active Protocol: Document 05/23/21 12:37 HH (Rec: 05/23/21 13:13 [email or web address]) Manual Assessments Soft Tissue Assessment Soft Tissue Mobility Assessment significant hypertonicty at levator scap, upper trap and teres minor. PT-OP-H Neuro Start: 05/23/21 09:05 Freq: Status: Active Protocol: Document 05/23/21 12:37 HH (Rec: 05/23/21 13:13 [email or web address]) Sensation Evaluation Gross Sensation Gross Sensation WNL Sensation Description Numbness,Tingling Dermatome Impairments C7,C8 Deep Tendon Reflex & Clonus Assessment Deep Tendon Reflex Bilateral Brachioradialis Deep Tendon Reflex 2+ Normal Bilateral Tricep Deep Tendon Reflex 2+ Normal Bilateral Bicep Deep Tendon Reflex 2+ Normal PT-OP-K Range of Motion Start: 05/23/21 09:05 Freq: Status: Active Protocol: Document 05/23/21 12:37 HH (Rec: 05/23/21 13:13 [email or web address]) Cervical Spine Range of Motion Cervical Spine Active Degrees Testing Position Sitting Flexion 63 Extension 50 Rotation Left 75 Rotation Right 55 Lateral Flexion Left 40 Lateral Flexion Right 33 ROM Limitations Pain Comments extension reproduces neuro sign end range rotation and lateral flexion to R reproduces neuro sign Shoulder Goniometric Range of Motion Shoulder Right Shoulder ROM WFL Yes Comments no symptoms Left Shoulder ROM WFL Yes Comments no symptoms PT-OP-L Special Tests Start: 05/23/21 09:05 Freq: Status: Active Protocol: Document 05/23/21 12:37 HH (Rec: 05/23/21 13:13 [email or web address]) Special Tests Cervical Spine Special Tests leela test Test Results +VE B Comments both hands gets cold and cramp . Foraminal Compression Test Results +ve Comments significant increase neuro sign to R Upper Limb Tension Test Test Results +VE Radial Comments significant increase neuro sign to R Spurling's Test Test Results +VE Comments significant increase neuro sign to R Traction Comments report of slight increased neuro sign PT-OP-M Strength Start: 05/23/21 09:05 Freq: Status: Active Protocol: Document 05/23/21 12:37 HH (Rec: 05/23/21 13:13 [email or web address]) Cervical Spine Strength Cervical Spine Manual Muscle Testing Comments WFL Shoulder Strength Shoulder Manual Muscle Testing Right Flexion 5 Normal Extension 5 Normal Abduction (C5) 5 Normal Adduction 5 Normal Left Flexion 5 Normal Extension 5 Normal Abduction (C5) 5 Normal Adduction 5 Normal Elbow/Forearm Strength Elbow and Forearm Manual Muscle Testing Right Flexion (C6) 5 Normal Extension (C7) 4- Good- Left Flexion (C6) 5 Normal Extension (C7) 5 Normal Wrist Strength Wrist Manual Muscle Testing Right Flexion (C7) 5 Normal Extension (C6) 5 Normal Ulnar Deviation 5 Normal Radial Deviation 5 Normal Left Flexion (C7) 5 Normal Extension (C6) 5 Normal Ulnar Deviation 5 Normal Radial Deviation 5 Normal PT-OP-Q Treatments Start: 05/23/21 09:05 Freq: Status: Active Protocol: Document 06/18/21 09:49 (Rec: 06/18/21 10:37 [id number]) Therapeutic Exercises Supine Exercises T/s extension Equipment Used foam roller Reps/Minutes 10x2 Comments for HEP chin tuck Reps/Minutes 20x5 Comments for hep Sidelying Exercises foam roller on lat Side right Reps/Minutes 10x2 Comments for HEP open book Sidelying Exercise Name full version Reps/Minutes 10x2 Comments for HEP Standing Exercises suboccipital stretch Reps/Minutes 20s x 5 Comments for HEP, does report radiating symptoms Manual Therapy Treatment Soft Tissue Mobilization RTC Body Location teres minor Mobilization Type Myofascial Release,Sustained Pressure,Trigger Point Release Intensity/Depth Moderate Body Position Supine Comments significant pain with neuro sign UT, levator Body Location +scalene Mobilization Type Myofascial Release,Sustained Pressure,Trigger Point Release Intensity/Depth Moderate Body Position Supine Comments mod pain with neuro sign suboccipital Mobilization Type Myofascial Release,Sustained Pressure,Trigger Point Release Intensity/Depth Moderate Body Position Supine Comments mod pain with neuro sign Joint Mobilizations PA mob Joint T1-T4, PA and UPA Direction PA Grade II Body Position Prone Comments significant pain with radiating symptoms at T2-T4, but reduce after PT-OP-T Assessment and Plan Start: 05/23/21 09:05 Freq: Status: Active Protocol: Document 06/18/21 09:49 (Rec: 06/18/21 10:37 [id number]) Physical Therapy Assessment Rehab Potential Rehabilitation Potential Excellent Evaluation Complexity Number of Personal Factors/Comorbidities 0 Number of Body Systems Impaired 1-2 Clinical Presentation at Evaluation Stable Impairments Impairments Functional Activities, Functional Mobility,Pain, Posture,ROM,Sensation,Soft Tissue Mobility,Strength Goals cervical ROM Impairment limited cervical ROM Short Term Goal (STG) pt will show improved cervical AROM by 10 degrees without neuro sign STG Duration 4 weeks Boxing And Pressing Supervisor Goal (LTG) pt will be able to look up and to the side for long period of time at work without increased symptoms LTG Duration 8 weeks neuro sign Impairment numbness/ tingling to elbow and hand Short Term Goal (STG) pt will show improved neural tension to radial nerve therefore he will not experience neuro sign while reaching overhead/ sitting. STG Duration 4 weeks Group Home Goal (LTG) pt will regain full 5/5 elbow extension strength which allows him to perform bench press 200lbs again. LTG Duration 8 weeks quickdash Impairment pt scores 15.9 on quickdash Short Term Goal (STG) pt will show improved mobility and strength to score <10 on quickdash STG Duration 4 weeks Group Home Goal (LTG) pt will show improved mobility and strength to score <5 on quickdash which allows him to perform his work duties without increased discomfort LTG Duration 8 weeks Assessment Summary Assessment pt reports his tingling and numbness have improved a lot who only has them occasionally but not everyday. Modified his suboccipital stretch and added supine thoracic extension with foam roller and lat roller. Also added isolated tricep extension. Physical Therapy Plan Frequency and Duration Frequency of Treatment 1x/Week Duration of Treatment 8 weeks Plan of Care Start Date 05/23/21 Plan of Care End Date 07/22/21 Therapeutic Interventions Therapeutic Interventions Home Exercise Program,Joint Mobilizations,Manual Therapy, Neuromuscular Re-education, Patient/Caregiver Education, Self-Care/Home Management,Soft Tissue Mobilization,Taping, Therapeutic Activities, Therapeutic Exercises Modalities Cold Pack/Ice Massage,Electric Stimulation,Hot Packs, Traction- Mechanical, Ultrasound Next Visit Focus/Plan Next Note Type Treatment Note Next Visit Plan check stretches traction, nerve glide STM on teres minor, scalenes, upper trap and levator
--- NOTE | 2021-06-24 09:58 | PT.OTN ---
Current Diagnoses Brachial plexus disorders (06/24/21) Physical Therapy Treatment Note PT-OP-A Visit Information Start: 05/23/21 09:05 Freq: Status: Active Protocol: Document 06/24/21 09:07 (Rec: 06/24/21 09:57 [id number]) Out-Patient Physical Therapy Visit Information Visit Information Visit Type Treatment Note Visit Start Time 09:03 Visit Stop Time 09:45 Total Visit Minutes 43 Visit Number 12/09 Number of CHEMICAL PROCESSING SUPERVISOR Visits 0 PT-OP-B Current Condition Start: 05/23/21 09:05 Freq: Status: Active Protocol: Document 05/23/21 12:37 HH (Rec: 05/23/21 13:13 [email or web address]) Current Condition History of Current Condition Onset Date this summer Current Complaints R arm radiating pain with neuro sign History of Current Condition Radha is a 40yo male here for his radiating pain and neuro sign to R arm started this summer with no known injury. He started experiencing radiating numbness/ tingling from his tricep, forearm to his dorsal side of the middle 3 fingers. Symptoms tend to present when he is stationary or with his arms overhead for a long period of time. He also notices significant weakness on elbow extension while doing bench press. No discomfort with sleeping. 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 He also weightlift 4 times/ wk who likes to overhead press, bench press and squat. 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 PT-OP-C Subjective Start: 05/23/21 09:05 Freq: Status: Active Protocol: Document 06/24/21 09:07 (Rec: 06/24/21 09:57 [id number]) OP-PT Subjective Patient Comments Patient Comments Josselin been feeling very good. I only had the tingling sensation towards the end of the day. However, I have a heavy labor this week so It might be hard on me Patient Reported Progress Improving PT-OP-F Manual Assessment Start: 05/23/21 09:05 Freq: Status: Active Protocol: Document 05/23/21 12:37 (Rec: 05/23/21 13:13 [email or web address]) Manual Assessments Soft Tissue Assessment Soft Tissue Mobility Assessment significant hypertonicty at levator scap, upper trap and teres minor. PT-OP-H Neuro Start: 05/23/21 09:05 Freq: Status: Active Protocol: Document 05/23/21 12:37 HH (Rec: 05/23/21 13:13 [email or web address]) Sensation Evaluation Gross Sensation Gross Sensation WNL Sensation Description Numbness,Tingling Dermatome Impairments C7,C8 Deep Tendon Reflex & Clonus Assessment Deep Tendon Reflex Bilateral Brachioradialis Deep Tendon Reflex 2+ Normal Bilateral Tricep Deep Tendon Reflex 2+ Normal Bilateral Bicep Deep Tendon Reflex 2+ Normal PT-OP-K Range of Motion Start: 05/23/21 09:05 Freq: Status: Active Protocol: Document 05/23/21 12:37 HH (Rec: 05/23/21 13:13 [email or web address]) Cervical Spine Range of Motion Cervical Spine Active Degrees Testing Position Sitting Flexion 63 Extension 50 Rotation Left 75 Rotation Right 55 Lateral Flexion Left 40 Lateral Flexion Right 33 ROM Limitations Pain Comments extension reproduces neuro sign end range rotation and lateral flexion to R reproduces neuro sign Shoulder Goniometric Range of Motion Shoulder Right Shoulder ROM WFL Yes Comments no symptoms Left Shoulder ROM WFL Yes Comments no symptoms PT-OP-L Special Tests Start: 05/23/21 09:05 Freq: Status: Active Protocol: Document 05/23/21 12:37 HH (Rec: 05/23/21 13:13 [email or web address]) Special Tests Cervical Spine Special Tests leela test Test Results +VE B Comments both hands gets cold and cramp . Foraminal Compression Test Results +ve Comments significant increase neuro sign to R Upper Limb Tension Test Test Results +VE Radial Comments significant increase neuro sign to R Spurling's Test Test Results +VE Comments significant increase neuro sign to R Traction Comments report of slight increased neuro sign PT-OP-M Strength Start: 05/23/21 09:05 Freq: Status: Active Protocol: Document 05/23/21 12:37 HH (Rec: 05/23/21 13:13 [email or web address]) Cervical Spine Strength Cervical Spine Manual Muscle Testing Comments WFL Shoulder Strength Shoulder Manual Muscle Testing Right Flexion 5 Normal Extension 5 Normal Abduction (C5) 5 Normal Adduction 5 Normal Left Flexion 5 Normal Extension 5 Normal Abduction (C5) 5 Normal Adduction 5 Normal Elbow/Forearm Strength Elbow and Forearm Manual Muscle Testing Right Flexion (C6) 5 Normal Extension (C7) 4- Good- Left Flexion (C6) 5 Normal Extension (C7) 5 Normal Wrist Strength Wrist Manual Muscle Testing Right Flexion (C7) 5 Normal Extension (C6) 5 Normal Ulnar Deviation 5 Normal Radial Deviation 5 Normal Left Flexion (C7) 5 Normal Extension (C6) 5 Normal Ulnar Deviation 5 Normal Radial Deviation 5 Normal PT-OP-Q Treatments Start: 05/23/21 09:05 Freq: Status: Active Protocol: Document 06/24/21 09:07 (Rec: 06/24/21 09:57 [id number]) Therapeutic Exercises Supine Exercises T/s extension Supine Exercise Name cues on T/S extension Equipment Used foam roller Reps/Minutes 10x2 Comments for HEP Prone Exercises cat camel Reps/Minutes 10 x2 Comments cues on thoracic extension Sidelying Exercises open book Sidelying Exercise Name full version, cues on T/S rotation focus Reps/Minutes 10x2 Comments for HEP Standing Exercises suboccipital stretch Standing Exercise Name + L cervical rotation to bias R suboccipital Reps/Minutes 20s x 5 Comments for HEP, does report radiating symptoms Manual Therapy Treatment Soft Tissue Mobilization suboccipital Body Location R Mobilization Type Myofascial Release,Sustained Pressure,Trigger Point Release Intensity/Depth Moderate Body Position Supine Comments mod pain with no neuro sign Joint Mobilizations PA mob Joint T1-T4, PA and UPA Direction PA Grade II Body Position Prone Comments reduced pain Manual Traction Cervical Body Position Supine Reps/Duration 10 s hold x10 Comments pt reports minimal neuro sign and relief consistently. PT-OP-T Assessment and Plan Start: 05/23/21 09:05 Freq: Status: Active Protocol: Document 06/24/21 09:07 (Rec: 06/24/21 09:57 [id number]) Physical Therapy Assessment Goals cervical ROM Impairment limited cervical ROM Short Term Goal (STG) pt will show improved cervical AROM by 10 degrees without neuro sign STG Duration 4 weeks Skilled Nursing Goal (LTG) pt will be able to look up and to the side for long period of time at work without increased symptoms LTG Duration 8 weeks neuro sign Impairment numbness/ tingling to elbow and hand Short Term Goal (STG) pt will show improved neural tension to radial nerve therefore he will not experience neuro sign while reaching overhead/ sitting. STG Duration 4 weeks Cupola Man Goal (LTG) pt will regain full 5/5 elbow extension strength which allows him to perform bench press 200lbs again. LTG Duration 8 weeks quickdash Impairment pt scores 15.9 on quickdash Short Term Goal (STG) pt will show improved mobility and strength to score <10 on quickdash STG Duration 4 weeks Skilled Nursing Goal (LTG) pt will show improved mobility and strength to score <5 on quickdash which allows him to perform his work duties without increased discomfort LTG Duration 8 weeks Assessment Summary Assessment pt is consistently getting better with decreased neuro sign and regain some tricep extension strength. However, he is going to have a intense labor week which might aggravate his symptoms. Educated him to focus on engaging upper trunk movements and gave im a pre work routine. Possible DC after next visit.. Physical Therapy Plan Frequency and Duration Frequency of Treatment 1x/Week Duration of Treatment 8 weeks Plan of Care Start Date 05/23/21 Plan of Care End Date 07/22/21 Therapeutic Interventions Therapeutic Interventions Home Exercise Program,Joint Mobilizations,Manual Therapy, Neuromuscular Re-education, Patient/Caregiver Education, Self-Care/Home Management,Soft Tissue Mobilization,Taping, Therapeutic Activities, Therapeutic Exercises Modalities Cold Pack/Ice Massage,Electric Stimulation,Hot Packs, Traction- Mechanical, Ultrasound Next Visit Focus/Plan Next Note Type Treatment Note Next Visit Plan check stretches open book, cat camel focus on t/s movement
--- NOTE | 2021-07-01 16:38 | PT.OTN ---
Current Diagnoses Brachial plexus disorders (07/01/21) Physical Therapy Treatment Note PT-OP-A Visit Information Start: 05/23/21 09:05 Freq: Status: Active Protocol: Document 07/01/21 14:11 [facility] (Rec: 07/01/21 16:37 [facility] [id number]) Out-Patient Physical Therapy Visit Information Visit Information Visit Type Treatment Note Visit Start Time 14:32 Visit Stop Time 15:20 Total Visit Minutes 48 Visit Number 01/09 Number of FRANCHISE SALES REPRESENTATIVE Visits 0 PT-OP-B Current Condition Start: 05/23/21 09:05 Freq: Status: Active Protocol: Document 05/23/21 12:37 (Rec: 05/23/21 13:13 HH [email or web address]) Current Condition History of Current Condition Onset Date this summer Current Complaints R arm radiating pain with neuro sign History of Current Condition Radha is a 40yo male here for his radiating pain and neuro sign to R arm started this summer with no known injury. He started experiencing radiating numbness/ tingling from his tricep, forearm to his dorsal side of the middle 3 fingers. Symptoms tend to present when he is stationary or with his arms overhead for a long period of time. He also notices significant weakness on elbow extension while doing bench press. No discomfort with sleeping. 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 He also weightlift 4 times/ wk who likes to overhead press, bench press and squat. 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 PT-OP-C Subjective Start: 05/23/21 09:05 Freq: Status: Active Protocol: Document 07/01/21 14:11 [facility] (Rec: 07/01/21 16:37 [facility] [id number]) OP-PT Subjective Patient Comments Patient Comments Pt reports he is doing well and has symptoms mostly after long days or at the end of the day only especially if he doens't get a chance to stretch Patient Reported Progress Improving PT-OP-F Manual Assessment Start: 05/23/21 09:05 Freq: Status: Active Protocol: Document 05/23/21 12:37 HH (Rec: 05/23/21 13:13 HH [email or web address]) Manual Assessments Soft Tissue Assessment Soft Tissue Mobility Assessment significant hypertonicty at levator scap, upper trap and teres minor. PT-OP-H Neuro Start: 05/23/21 09:05 Freq: Status: Active Protocol: Document 05/23/21 12:37 (Rec: 05/23/21 13:13 [email or web address]) Sensation Evaluation Gross Sensation Gross Sensation WNL Sensation Description Numbness,Tingling Dermatome Impairments C7,C8 Deep Tendon Reflex & Clonus Assessment Deep Tendon Reflex Bilateral Brachioradialis Deep Tendon Reflex 2+ Normal Bilateral Tricep Deep Tendon Reflex 2+ Normal Bilateral Bicep Deep Tendon Reflex 2+ Normal PT-OP-K Range of Motion Start: 05/23/21 09:05 Freq: Status: Active Protocol: Document 07/01/21 14:11 [facility] (Rec: 07/01/21 16:37 [facility] [id number]) Cervical Spine Range of Motion Cervical Spine Active Degrees Testing Position Sitting Flexion 64 Extension 47 Rotation Left 73 Rotation Right 50 Lateral Flexion Left 40 Lateral Flexion Right 32 ROM Limitations Pain PT-OP-L Special Tests Start: 05/23/21 09:05 Freq: Status: Active Protocol: Document 07/01/21 14:11 [facility] (Rec: 07/01/21 16:37 [facility] [id number]) Special Tests Neural Special Tests- Upper Body radial Test Results positive R PT-OP-M Strength Start: 05/23/21 09:05 Freq: Status: Active Protocol: Document 07/01/21 14:11 [facility] (Rec: 07/01/21 16:37 [facility] [id number]) Elbow/Forearm Strength Elbow and Forearm Manual Muscle Testing Right Flexion (C6) 5 Normal Extension (C7) 4+ Good+ Left Flexion (C6) 5 Normal Extension (C7) 5 Normal PT-OP-Q Treatments Start: 05/23/21 09:05 Freq: Status: Active Protocol: Document 07/01/21 14:11 [facility] (Rec: 07/01/21 16:37 [facility] [id number]) Therapeutic Exercises Prone Exercises cat camel Reps/Minutes 12 Comments cues on thoracic extension Standing Exercises scap set Standing Exercise Name set of scap w/lázaro, ER then set Side bilateral Reps/Minutes 4 Manual Therapy Treatment Soft Tissue Mobilization cervical Body Location post fascia Mobilization Type Myofascial Release Comments w/looking down & L/R Joint Mobilizations thoracic Comments 1. UPA R T1 & 2 FM seated 2. transverse glide L FM T1 & 2 3.UPA R T7 &8 FM cat/camel ribs Comments 1. AP & inf rib 7 FM 2. AP & inf glide FM 1-2 Self-Care/Home Management Treatment Education Other Education edu why ribcage mobility is important and why scap position matters for nerve tesnion. Edu that pt is still limited in range so would benefit from cont to cont to work on mobility of scap and ribcage and neck to improve ROM & n tension PT-OP-T Assessment and Plan Start: 05/23/21 09:05 Freq: Status: Active Protocol: Document 07/01/21 14:11 [facility] (Rec: 07/01/21 16:37 [facility] [id number]) Physical Therapy Assessment Goals cervical ROM Impairment limited cervical ROM Short Term Goal (STG) pt will show improved cervical AROM by 10 degrees without neuro sign 07/01-no major change w/ROM but no neuro sign STG Duration 4 weeks Detention Goal (LTG) pt will be able to look up and to the side for long period of time at work without increased symptoms 07/01-symptoms only w/long hard days; much improved LTG Duration 6 weeks neuro sign Impairment numbness/ tingling to elbow and hand Short Term Goal (STG) pt will show improved neural tension to radial nerve therefore he will not experience neuro sign while reaching overhead/ sitting. 07/01-still tension STG Duration 4 weeks Detention Goal (LTG) pt will regain full 5/5 elbow extension strength which allows him to perform bench press 200lbs again. 07/01-improved to 4+ LTG Duration 6 weeks quickdash Impairment pt scores 15.9 on quickdash Short Term Goal (STG) pt will show improved mobility and strength to score <10 on quickdash 07/01-n/t STG Duration 3 weeks Detention Goal (LTG) pt will show improved mobility and strength to score <5 on quickdash which allows him to perform his work duties without increased discomfort LTG Duration 6 weeks Assessment Summary Assessment Pt is making excellent progress with therapy and has significantly improved symptoms w/only geting symptoms after a long day of work when he hasn't been able to do his stretches as frequently. He had imrpoved ability to set scap after manual treatment and had some improvement in R rotation and ext after manual. Due to cont cervical rotation limits and radial n tension test still positive, he would benefit from cont PT Physical Therapy Plan Frequency and Duration Frequency of Treatment 1x/Week Duration of Treatment 2 months Plan of Care Start Date 07/01/21 Plan of Care End Date 09/01/21 Therapeutic Interventions Therapeutic Interventions Home Exercise Program,Joint Mobilizations,Manual Therapy, Neuromuscular Re-education, Patient/Caregiver Education, Self-Care/Home Management,Soft Tissue Mobilization,Taping, Therapeutic Activities, Therapeutic Exercises Modalities Cold Pack/Ice Massage,Electric Stimulation,Hot Packs, Traction- Mechanical, Ultrasound Next Visit Focus/Plan Next Note Type Treatment Note Next Visit Plan work on ability for scap to depress and to get improvement of ribcage mobility to dec radial n symptoms
--- NOTE | 2021-07-01 16:38 | PT.OPPOC ---
Physical, Occupational & Speech Therapy At [facility] Current Diagnoses Brachial plexus disorders (07/01/21) Visit Care Team Role Provider Type Sylvie Milner ND Attending Provider Non-Staff Primary Care Provider Referring Provider Specialty: Naturopathy Address: [facility], [address] [place] [address], [id number] Email: Plan Of Care PT-OP-T Assessment and Plan Start: 05/23/21 09:05 Freq: Status: Active Protocol: Document 07/01/21 14:11 [facility] (Rec: 07/01/21 16:37 [facility] [id number]) Physical Therapy Assessment Goals cervical ROM Impairment limited cervical ROM Short Term Goal (STG) pt will show improved cervical AROM by 10 degrees without neuro sign 07/01-no major change w/ROM but no neuro sign STG Duration 4 weeks Assisted Goal (LTG) pt will be able to look up and to the side for long period of time at work without increased symptoms 07/01-symptoms only w/long hard days; much improved LTG Duration 6 weeks neuro sign Impairment numbness/ tingling to elbow and hand Short Term Goal (STG) pt will show improved neural tension to radial nerve therefore he will not experience neuro sign while reaching overhead/ sitting. 07/01-still tension STG Duration 4 weeks Assisted Goal (LTG) pt will regain full 5/5 elbow extension strength which allows him to perform bench press 200lbs again. 07/01-improved to 4+ LTG Duration 6 weeks quickdash Impairment pt scores 15.9 on quickdash Short Term Goal (STG) pt will show improved mobility and strength to score <10 on quickdash 07/01-n/t STG Duration 3 weeks Admitting Clerk Goal (LTG) pt will show improved mobility and strength to score <5 on quickdash which allows him to perform his work duties without increased discomfort LTG Duration 6 weeks Assessment Summary Assessment Pt is making excellent progress with therapy and has significantly improved symptoms w/only geting symptoms after a long day of work when he hasn't been able to do his stretches as frequently. He had imrpoved ability to set scap after manual treatment and had some improvement in R rotation and ext after manual. Due to cont cervical rotation limits and radial n tension test still positive, he would benefit from cont PT Physical Therapy Plan Frequency and Duration Frequency of Treatment 1x/Week Duration of Treatment 2 months Plan of Care Start Date 07/01/21 Plan of Care End Date 09/01/21 Therapeutic Interventions Therapeutic Interventions Home Exercise Program,Joint Mobilizations,Manual Therapy, Neuromuscular Re-education, Patient/Caregiver Education, Self-Care/Home Management,Soft Tissue Mobilization,Taping, Therapeutic Activities, Therapeutic Exercises Modalities Cold Pack/Ice Massage,Electric Stimulation,Hot Packs, Traction- Mechanical, Ultrasound Next Visit Focus/Plan Next Note Type Treatment Note Next Visit Plan work on ability for scap to depress and to get improvement of ribcage mobility to dec radial n symptoms Plan of Care Dates Plan of Care Start Date 07/01/21 Plan of Care End Date 09/01/21 Electronically Signed by: Andria Diaz, PT 07/01/21 1039 Please Sign and Return: I have reviewed this Plan of Care and certify that the skilled therapy services above are required to meet the patient?s needs. Physician Signature Date Printed Name and Credentials Clinical Instructor Signature Printed Name and Credentials
--- NOTE | 2021-07-23 18:27 | PT.OTN ---
Current Diagnoses Brachial plexus disorders (07/23/21) Physical Therapy Treatment Note PT-OP-A Visit Information Start: 05/23/21 09:05 Freq: Status: Active Protocol: Document 07/23/21 18:10 [facility] (Rec: 07/23/21 18:27 [facility] [id number]) Out-Patient Physical Therapy Visit Information Visit Information Visit Type Treatment Note Visit Note 08/11 Visit Start Time 14:36 Visit Stop Time 15:16 Total Visit Minutes 40 Visit Number 7 Number of EDUCATION SALES CONSULTANT Visits 0 PT-OP-B Current Condition Start: 05/23/21 09:05 Freq: Status: Active Protocol: Document 05/23/21 12:37 [facility] (Rec: 05/23/21 13:13 HH [email or web address]) Current Condition History of Current Condition Onset Date this summer Current Complaints R arm radiating pain with neuro sign History of Current Condition Radha is a 40yo male here for his radiating pain and neuro sign to R arm started this summer with no known injury. He started experiencing radiating numbness/ tingling from his tricep, forearm to his dorsal side of the middle 3 fingers. Symptoms tend to present when he is stationary or with his arms overhead for a long period of time. He also notices significant weakness on elbow extension while doing bench press. No discomfort with sleeping. 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 He also weightlift 4 times/ wk who likes to overhead press, bench press and squat. 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 PT-OP-C Subjective Start: 05/23/21 09:05 Freq: Status: Active Protocol: Document 07/23/21 18:10 [facility] (Rec: 07/23/21 18:27 [facility] [id number]) OP-PT Subjective Patient Comments Patient Comments Pt reports he drove 9 [place] and since then he has had inc tingling in his arm and can bring it on easily by looking up, or rotating neck. he feels like it is worse, but his strength feels okay still Patient Reported Progress Worse PT-OP-F Manual Assessment Start: 05/23/21 09:05 Freq: Status: Active Protocol: Document 05/23/21 12:37 (Rec: 05/23/21 13:13 HH [email or web address]) Manual Assessments Soft Tissue Assessment Soft Tissue Mobility Assessment significant hypertonicty at levator scap, upper trap and teres minor. PT-OP-H Neuro Start: 05/23/21 09:05 Freq: Status: Active Protocol: Document 05/23/21 12:37 [facility] (Rec: 05/23/21 13:13 HH [email or web address]) Sensation Evaluation Gross Sensation Gross Sensation WNL Sensation Description Numbness,Tingling Dermatome Impairments C7,C8 Deep Tendon Reflex & Clonus Assessment Deep Tendon Reflex Bilateral Brachioradialis Deep Tendon Reflex 2+ Normal Bilateral Tricep Deep Tendon Reflex 2+ Normal Bilateral Bicep Deep Tendon Reflex 2+ Normal PT-OP-K Range of Motion Start: 05/23/21 09:05 Freq: Status: Active Protocol: Document 07/01/21 14:11 [facility] (Rec: 07/01/21 16:37 [facility] [id number]) Cervical Spine Range of Motion Cervical Spine Active Degrees Testing Position Sitting Flexion 64 Extension 47 Rotation Left 73 Rotation Right 50 Lateral Flexion Left 40 Lateral Flexion Right 32 ROM Limitations Pain PT-OP-L Special Tests Start: 05/23/21 09:05 Freq: Status: Active Protocol: Document 07/01/21 14:11 [facility] (Rec: 07/01/21 16:37 [facility] [id number]) Special Tests Neural Special Tests- Upper Body radial Test Results positive R PT-OP-M Strength Start: 05/23/21 09:05 Freq: Status: Active Protocol: Document 07/01/21 14:11 [facility] (Rec: 07/01/21 16:37 [facility] [id number]) Elbow/Forearm Strength Elbow and Forearm Manual Muscle Testing Right Flexion (C6) 5 Normal Extension (C7) 4+ Good+ Left Flexion (C6) 5 Normal Extension (C7) 5 Normal PT-OP-Q Treatments Start: 05/23/21 09:05 Freq: Status: Active Protocol: Document 07/23/21 18:10 [facility] (Rec: 07/23/21 18:27 [facility] [id number]) Therapeutic Exercises Standing Exercises scap set Standing Exercise Name set of scap w/lázaro, ER then set Side bilateral Reps/Minutes 5 Manual Therapy Treatment Soft Tissue Mobilization pec Body Location R Mobilization Type Rolling,Sustained Pressure Intensity/Depth Moderate Body Position Supine post Body Location R lat, teres Mobilization Type Strumming Comments w/shoudler flex R UT, levator Body Location LS, UT, scalene Mobilization Type Myofascial Release,Sustained Pressure,Trigger Point Release Intensity/Depth Moderate Body Position Sidelying Comments w/ post dep Joint Mobilizations thoracic Comments 1.UPA R T7 FM s/l 2. transverse glide T5 L FM ribs Comments 1. inf rib 7 FM 2. AP & inf glide FM 2 &3 PT-OP-T Assessment and Plan Start: 05/23/21 09:05 Freq: Status: Active Protocol: Document 07/23/21 18:10 [facility] (Rec: 07/23/21 18:27 [facility] [id number]) Physical Therapy Assessment Goals cervical ROM Impairment limited cervical ROM Short Term Goal (STG) pt will show improved cervical AROM by 10 degrees without neuro sign 07/01-no major change w/ROM but no neuro sign STG Duration 4 weeks Skilled Nursing Goal (LTG) pt will be able to look up and to the side for long period of time at work without increased symptoms 07/01-symptoms only w/long hard days; much improved LTG Duration 6 weeks neuro sign Impairment numbness/ tingling to elbow and hand Short Term Goal (STG) pt will show improved neural tension to radial nerve therefore he will not experience neuro sign while reaching overhead/ sitting. 07/01-still tension STG Duration 4 weeks Skilled Nursing Goal (LTG) pt will regain full 5/5 elbow extension strength which allows him to perform bench press 200lbs again. 07/01-improved to 4+ LTG Duration 6 weeks quickdash Impairment pt scores 15.9 on quickdash Short Term Goal (STG) pt will show improved mobility and strength to score <10 on quickdash 07/01-n/t STG Duration 3 weeks Skilled Nursing Goal (LTG) pt will show improved mobility and strength to score <5 on quickdash which allows him to perform his work duties without increased discomfort LTG Duration 6 weeks Assessment Summary Assessment Pt presented w/easy ability to cause neurosigns in RUE w/ small movements of neck. He had signficiant tightness in ribcage, thoracic, scap and cervical region with no ability to depress or retract. After manual, he had significnatly more ability to scap retract and depress in order to be in better postural position. Physical Therapy Plan Frequency and Duration Frequency of Treatment 1x/Week Duration of Treatment 2 months Plan of Care Start Date 07/01/21 Plan of Care End Date 09/01/21 Next Visit Focus/Plan Next Note Type Treatment Note Next Visit Plan work on ability for scap to depress and to get improvement of ribcage mobility to dec radial n symptoms
--- NOTE | 2021-07-30 18:36 | PT.OTN ---
Current Diagnoses Brachial plexus disorders (07/30/21) Physical Therapy Treatment Note PT-OP-A Visit Information Start: 05/23/21 09:05 Freq: Status: Active Protocol: Document 07/30/21 18:28 [facility] (Rec: 07/30/21 18:36 [facility] [id number]) Out-Patient Physical Therapy Visit Information Visit Information Visit Type Treatment Note Visit Note 09/11 Visit Start Time 13:49 Visit Stop Time 14:30 Total Visit Minutes 41 Visit Number 8 Number of ORTHOTICS PROSTHETICS TECHNICIAN Visits 0 PT-OP-B Current Condition Start: 05/23/21 09:05 Freq: Status: Active Protocol: Document 05/23/21 12:37 [facility] (Rec: 05/23/21 13:13 HH [email or web address]) Current Condition History of Current Condition Onset Date this summer Current Complaints R arm radiating pain with neuro sign History of Current Condition Radha is a 40yo male here for his radiating pain and neuro sign to R arm started this summer with no known injury. He started experiencing radiating numbness/ tingling from his tricep, forearm to his dorsal side of the middle 3 fingers. Symptoms tend to present when he is stationary or with his arms overhead for a long period of time. He also notices significant weakness on elbow extension while doing bench press. No discomfort with sleeping. 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 He also weightlift 4 times/ wk who likes to overhead press, bench press and squat. 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 PT-OP-C Subjective Start: 05/23/21 09:05 Freq: Status: Active Protocol: Document 07/30/21 18:28 [facility] (Rec: 07/30/21 18:36 [facility] [id number]) OP-PT Subjective Patient Comments Patient Comments Pt reports being about the same. It doesn't take much to bring on arm symptoms. Notes the last few weeks until recently, he was sleeping on the couch Patient Reported Progress Same PT-OP-F Manual Assessment Start: 05/23/21 09:05 Freq: Status: Active Protocol: Document 05/23/21 12:37 [facility] (Rec: 05/23/21 13:13 HH [email or web address]) Manual Assessments Soft Tissue Assessment Soft Tissue Mobility Assessment significant hypertonicty at levator scap, upper trap and teres minor. PT-OP-H Neuro Start: 05/23/21 09:05 Freq: Status: Active Protocol: Document 05/23/21 12:37 (Rec: 05/23/21 13:13 [email or web address]) Sensation Evaluation Gross Sensation Gross Sensation WNL Sensation Description Numbness,Tingling Dermatome Impairments C7,C8 Deep Tendon Reflex & Clonus Assessment Deep Tendon Reflex Bilateral Brachioradialis Deep Tendon Reflex 2+ Normal Bilateral Tricep Deep Tendon Reflex 2+ Normal Bilateral Bicep Deep Tendon Reflex 2+ Normal PT-OP-K Range of Motion Start: 05/23/21 09:05 Freq: Status: Active Protocol: Document 07/01/21 14:11 [facility] (Rec: 07/01/21 16:37 [facility] [id number]) Cervical Spine Range of Motion Cervical Spine Active Degrees Testing Position Sitting Flexion 64 Extension 47 Rotation Left 73 Rotation Right 50 Lateral Flexion Left 40 Lateral Flexion Right 32 ROM Limitations Pain PT-OP-L Special Tests Start: 05/23/21 09:05 Freq: Status: Active Protocol: Document 07/01/21 14:11 [facility] (Rec: 07/01/21 16:37 [facility] [id number]) Special Tests Neural Special Tests- Upper Body radial Test Results positive R PT-OP-M Strength Start: 05/23/21 09:05 Freq: Status: Active Protocol: Document 07/01/21 14:11 [facility] (Rec: 07/01/21 16:37 [facility] [id number]) Elbow/Forearm Strength Elbow and Forearm Manual Muscle Testing Right Flexion (C6) 5 Normal Extension (C7) 4+ Good+ Left Flexion (C6) 5 Normal Extension (C7) 5 Normal PT-OP-Q Treatments Start: 05/23/21 09:05 Freq: Status: Active Protocol: Document 07/30/21 18:28 [facility] (Rec: 07/30/21 18:36 [facility] [id number]) Therapeutic Exercises Sitting Exercises chin tuck Sitting Exercise Name for postural awareness Reps/Minutes mult reps thorughout session for reset breathing Sitting Exercise Name diaphragmatic breathing Comments w/tactile cues at R ribcage and abdomen Standing Exercises scap set Standing Exercise Name set of scap w/lázaro, ER then set Side bilateral Reps/Minutes 2 Manual Therapy Treatment Soft Tissue Mobilization post Body Location R lat, teres, rhomboids, tspine paraspinals Mobilization Type Strumming Comments w/ scap dep UT, levator Body Location LS, UT, scalene Mobilization Type Myofascial Release,Sustained Pressure,Trigger Point Release Intensity/Depth Moderate Body Position Sidelying Comments w/ post dep Joint Mobilizations thoracic Comments 1. UPA R & PA T1 & 2 FM seated 2.UPA R T7 w/c/r scap dep 3. PA T4 &5 FM PT-OP-T Assessment and Plan Start: 05/23/21 09:05 Freq: Status: Active Protocol: Document 07/30/21 18:28 [facility] (Rec: 07/30/21 18:36 [facility] [id number]) Physical Therapy Assessment Goals cervical ROM Impairment limited cervical ROM Short Term Goal (STG) pt will show improved cervical AROM by 10 degrees without neuro sign 07/01-no major change w/ROM but no neuro sign STG Duration 4 weeks Tool Operator Goal (LTG) pt will be able to look up and to the side for long period of time at work without increased symptoms 07/01-symptoms only w/long hard days; much improved LTG Duration 6 weeks neuro sign Impairment numbness/ tingling to elbow and hand Short Term Goal (STG) pt will show improved neural tension to radial nerve therefore he will not experience neuro sign while reaching overhead/ sitting. 07/01-still tension STG Duration 4 weeks Care Home Goal (LTG) pt will regain full 5/5 elbow extension strength which allows him to perform bench press 200lbs again. 07/01-improved to 4+ LTG Duration 6 weeks quickdash Impairment pt scores 15.9 on quickdash Short Term Goal (STG) pt will show improved mobility and strength to score <10 on quickdash 07/01-n/t STG Duration 3 weeks Care Home Goal (LTG) pt will show improved mobility and strength to score <5 on quickdash which allows him to perform his work duties without increased discomfort LTG Duration 6 weeks Assessment Summary Assessment W/manual today, pt was able to go into post depression and hold position better w/less restriction in s/l. When placed in prone prop, he noted some symptoms from being WB but after manual had equal wt/ rotation B. In sitting, pt still had a lot of cues to relax and required edu for diaphragmatic breathing as he had elevationo f scap during every breath. He was able to change his breathing. Neck posture required frequent cueing as pt would go into upper c spine ext for his idea of neutral. He noted feeling n. sensation down arm w/ palpation of T3-5 area on R at begininng of session Physical Therapy Plan Frequency and Duration Frequency of Treatment 1x/Week Duration of Treatment 2 months Plan of Care Start Date 07/01/21 Plan of Care End Date 09/01/21 Next Visit Focus/Plan Next Note Type Treatment Note Next Visit Plan work on ability for scap to depress and to get improvement of ribcage mobility to dec radial n symptoms; work upper tspine; try work in seated
--- NOTE | 2021-08-13 14:36 | PT.OTN ---
Current Diagnoses Brachial plexus disorders (08/13/21) Physical Therapy Treatment Note PT-OP-A Visit Information Start: 05/23/21 09:05 Freq: Status: Active Protocol: Document 08/13/21 13:16 [facility] (Rec: 08/13/21 14:36 [facility] [id number]) Out-Patient Physical Therapy Visit Information Visit Information Visit Type Treatment Note Visit Note 10/09 Visit Start Time 13:50 Visit Stop Time 14:29 Total Visit Minutes 39 Visit Number 9 Number of ARTIST WOODBLOCK Visits 0 PT-OP-B Current Condition Start: 05/23/21 09:05 Freq: Status: Active Protocol: Document 05/23/21 12:37 (Rec: 05/23/21 13:13 HH [email or web address]) Current Condition History of Current Condition Onset Date this summer Current Complaints R arm radiating pain with neuro sign History of Current Condition Radha is a 40yo male here for his radiating pain and neuro sign to R arm started this summer with no known injury. He started experiencing radiating numbness/ tingling from his tricep, forearm to his dorsal side of the middle 3 fingers. Symptoms tend to present when he is stationary or with his arms overhead for a long period of time. He also notices significant weakness on elbow extension while doing bench press. No discomfort with sleeping. 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 He also weightlift 4 times/ wk who likes to overhead press, bench press and squat. 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 PT-OP-C Subjective Start: 05/23/21 09:05 Freq: Status: Active Protocol: Document 08/13/21 13:16 [facility] (Rec: 08/13/21 14:36 [facility] [id number]) OP-PT Subjective Patient Comments Patient Comments Pt reports he has been having to do a lot of work PT-OP-F Manual Assessment Start: 05/23/21 09:05 Freq: Status: Active Protocol: Document 05/23/21 12:37 HH (Rec: 05/23/21 13:13 HH [email or web address]) Manual Assessments Soft Tissue Assessment Soft Tissue Mobility Assessment significant hypertonicty at levator scap, upper trap and teres minor. PT-OP-H Neuro Start: 05/23/21 09:05 Freq: Status: Active Protocol: Document 05/23/21 12:37 HH (Rec: 05/23/21 13:13 HH [email or web address]) Sensation Evaluation Gross Sensation Gross Sensation WNL Sensation Description Numbness,Tingling Dermatome Impairments C7,C8 Deep Tendon Reflex & Clonus Assessment Deep Tendon Reflex Bilateral Brachioradialis Deep Tendon Reflex 2+ Normal Bilateral Tricep Deep Tendon Reflex 2+ Normal Bilateral Bicep Deep Tendon Reflex 2+ Normal PT-OP-K Range of Motion Start: 05/23/21 09:05 Freq: Status: Active Protocol: Document 07/01/21 14:11 [facility] (Rec: 07/01/21 16:37 [facility] [id number]) Cervical Spine Range of Motion Cervical Spine Active Degrees Testing Position Sitting Flexion 64 Extension 47 Rotation Left 73 Rotation Right 50 Lateral Flexion Left 40 Lateral Flexion Right 32 ROM Limitations Pain PT-OP-L Special Tests Start: 05/23/21 09:05 Freq: Status: Active Protocol: Document 07/01/21 14:11 [facility] (Rec: 07/01/21 16:37 [facility] [id number]) Special Tests Neural Special Tests- Upper Body radial Test Results positive R PT-OP-M Strength Start: 05/23/21 09:05 Freq: Status: Active Protocol: Document 07/01/21 14:11 [facility] (Rec: 07/01/21 16:37 [facility] [id number]) Elbow/Forearm Strength Elbow and Forearm Manual Muscle Testing Right Flexion (C6) 5 Normal Extension (C7) 4+ Good+ Left Flexion (C6) 5 Normal Extension (C7) 5 Normal PT-OP-Q Treatments Start: 05/23/21 09:05 Freq: Status: Active Protocol: Document 08/13/21 13:16 [facility] (Rec: 08/13/21 14:36 [facility] [id number]) Therapeutic Exercises Supine Exercises foam roll Supine Exercise Name //: side/side rolling, Habd & flex Side bilateral Reps/Minutes 5 min Sitting Exercises stretch Side right Reps/Minutes 30 sec Comments flex & ext Standing Exercises stretch Standing Exercise Name wrist flexor and extensor on mat Side bilateral Reps/Minutes 30 sec Manual Therapy Treatment Soft Tissue Mobilization median n glide Comments along, ant forearm, biceps, pecs, scalenes w/median n glide gradually inc avoiding symptoms PT-OP-T Assessment and Plan Start: 05/23/21 09:05 Freq: Status: Active Protocol: Document 08/13/21 13:16 [facility] (Rec: 08/13/21 14:36 [facility] [id number]) Physical Therapy Assessment Goals cervical ROM Impairment limited cervical ROM Short Term Goal (STG) pt will show improved cervical AROM by 10 degrees without neuro sign 07/01-no major change w/ROM but no neuro sign STG Duration 4 weeks Immigration Services Officer Goal (LTG) pt will be able to look up and to the side for long period of time at work without increased symptoms 07/01-symptoms only w/long hard days; much improved LTG Duration 6 weeks neuro sign Impairment numbness/ tingling to elbow and hand Short Term Goal (STG) pt will show improved neural tension to radial nerve therefore he will not experience neuro sign while reaching overhead/ sitting. 07/01-still tension STG Duration 4 weeks Immigration Services Officer Goal (LTG) pt will regain full 5/5 elbow extension strength which allows him to perform bench press 200lbs again. 07/01-improved to 4+ LTG Duration 6 weeks quickdash Impairment pt scores 15.9 on quickdash Short Term Goal (STG) pt will show improved mobility and strength to score <10 on quickdash 07/01-n/t STG Duration 3 weeks Immigration Services Officer Goal (LTG) pt will show improved mobility and strength to score <5 on quickdash which allows him to perform his work duties without increased discomfort LTG Duration 6 weeks Assessment Summary Assessment Pt did well with session today w/o inc symptoms except when arm was being treated at 90 deg abd. Pt did have positive n tension early in range at about 20 deg ab d at start and imrpoved to 90 deg abd before symptoms. Physical Therapy Plan Frequency and Duration Frequency of Treatment 1x/Week Duration of Treatment 2 months Plan of Care Start Date 07/01/21 Plan of Care End Date 09/01/21 Next Visit Focus/Plan Next Note Type Treatment Note Next Visit Plan work on ability for scap to depress and to get improvement of ribcage mobility to dec radial n symptoms; work upper tspine; try work in seated
--- NOTE | 2021-08-21 12:26 | PT.OTN ---
Current Diagnoses Brachial plexus disorders (08/21/21) Physical Therapy Treatment Note PT-OP-A Visit Information Start: 05/23/21 09:05 Freq: Status: Active Protocol: Document 08/21/21 11: [facility] (Rec: 08/21/21 12:25 [facility] [id number]) Out-Patient Physical Therapy Visit Information Visit Information Visit Type Treatment Note Visit Note 11/09 Visit Start Time 11: Visit Stop Time 12:15 Total Visit Minutes 54 Visit Number 10 Number of ALL SOURCE ANALYST Visits 0 PT-OP-B Current Condition Start: 05/23/21 09:05 Freq: Status: Active Protocol: Document 05/23/21 12:37 HH (Rec: 05/23/21 13:13 HH [email or web address]) Current Condition History of Current Condition Onset Date this summer Current Complaints R arm radiating pain with neuro sign History of Current Condition Radha is a 40yo male here for his radiating pain and neuro sign to R arm started this summer with no known injury. He started experiencing radiating numbness/ tingling from his tricep, forearm to his dorsal side of the middle 3 fingers. Symptoms tend to present when he is stationary or with his arms overhead for a long period of time. He also notices significant weakness on elbow extension while doing bench press. No discomfort with sleeping. 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 He also weightlift 4 times/ wk who likes to overhead press, bench press and squat. 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 PT-OP-C Subjective Start: 05/23/21 09:05 Freq: Status: Active Protocol: Document 08/21/21 11:22 [facility] (Rec: 08/21/21 12:25 [facility] [id number]) OP-PT Subjective Patient Comments Patient Comments Pt reports having a significant inc in symptoms after Wednesday working. Notes it hasn't gotten better since then. Wednesday night he slept on a couch during his son's sleep study. PT-OP-F Manual Assessment Start: 05/23/21 09:05 Freq: Status: Active Protocol: Document 05/23/21 12:37 HH (Rec: 05/23/21 13:13 [email or web address]) Manual Assessments Soft Tissue Assessment Soft Tissue Mobility Assessment significant hypertonicty at levator scap, upper trap and teres minor. PT-OP-H Neuro Start: 05/23/21 09:05 Freq: Status: Active Protocol: Document 05/23/21 12:37 (Rec: 05/23/21 13:13 [email or web address]) Sensation Evaluation Gross Sensation Gross Sensation WNL Sensation Description Numbness,Tingling Dermatome Impairments C7,C8 Deep Tendon Reflex & Clonus Assessment Deep Tendon Reflex Bilateral Brachioradialis Deep Tendon Reflex 2+ Normal Bilateral Tricep Deep Tendon Reflex 2+ Normal Bilateral Bicep Deep Tendon Reflex 2+ Normal PT-OP-K Range of Motion Start: 05/23/21 09:05 Freq: Status: Active Protocol: Document 07/01/21 14:11 [facility] (Rec: 07/01/21 16:37 [facility] [id number]) Cervical Spine Range of Motion Cervical Spine Active Degrees Testing Position Sitting Flexion 64 Extension 47 Rotation Left 73 Rotation Right 50 Lateral Flexion Left 40 Lateral Flexion Right 32 ROM Limitations Pain PT-OP-L Special Tests Start: 05/23/21 09:05 Freq: Status: Active Protocol: Document 07/01/21 14:11 [facility] (Rec: 07/01/21 16:37 [facility] [id number]) Special Tests Neural Special Tests- Upper Body radial Test Results positive R PT-OP-M Strength Start: 05/23/21 09:05 Freq: Status: Active Protocol: Document 07/01/21 14:11 [facility] (Rec: 07/01/21 16:37 [facility] [id number]) Elbow/Forearm Strength Elbow and Forearm Manual Muscle Testing Right Flexion (C6) 5 Normal Extension (C7) 4+ Good+ Left Flexion (C6) 5 Normal Extension (C7) 5 Normal PT-OP-Q Treatments Start: 05/23/21 09:05 Freq: Status: Active Protocol: Document 08/21/21 11:22 [facility] (Rec: 08/21/21 12:25 [facility] [id number]) Therapeutic Exercises Prone Exercises Habd Prone Exercise Name over tball Side bilateral Reps/Minutes 15 Comments stopped pt noted symptoms starting Standing Exercises ER Side bilateral Equipment Used L1 Reps/Minutes 20 Comments cues for scap retraction row Side bilateral Equipment Used L2 Reps/Minutes 20 Comments cues for scap retraction Manual Therapy Treatment Soft Tissue Mobilization triceps Body Location R Mobilization Type Rolling Intensity/Depth Moderate post Body Location R rhomboids and paraspinal Mobilization Type Rolling,Strumming Comments w/cervical flex and rot RTC Body Location R infra & teres Mobilization Type Myofascial Release,Sustained Pressure,Trigger Point Release Intensity/Depth Moderate Joint Mobilizations thoracic Comments 1. UPA L T1 & PA T1 & 2 &3 & UPA R T2 FM seated 2. PA T4 &5 FM Manual Traction Cervical Body Position Supine Reps/Duration 10 s hold x10 Comments pt reports minimal neuro sign and relief consistently. PT-OP-R Modalities Start: 05/23/21 09:05 Freq: Status: Active Protocol: Document 08/21/21 11:22 [facility] (Rec: 08/21/21 12:26 [facility] [id number]) Spinal Traction Traction Treatment Cervical Method Mechanical,Static Patient Position Hooklying Force Applied (Pounds) 16 Traction Treatment Comment CP to R shoulder PT-OP-T Assessment and Plan Start: 05/23/21 09:05 Freq: Status: Active Protocol: Document 08/21/21 11:22 [facility] (Rec: 08/21/21 12:25 [facility] [id number]) Physical Therapy Assessment Goals cervical ROM Impairment limited cervical ROM Short Term Goal (STG) pt will show improved cervical AROM by 10 degrees without neuro sign 07/01-no major change w/ROM but no neuro sign STG Duration 4 weeks Mcfp Goal (LTG) pt will be able to look up and to the side for long period of time at work without increased symptoms 07/01-symptoms only w/long hard days; much improved LTG Duration 6 weeks neuro sign Impairment numbness/ tingling to elbow and hand Short Term Goal (STG) pt will show improved neural tension to radial nerve therefore he will not experience neuro sign while reaching overhead/ sitting. 07/01-still tension STG Duration 4 weeks Electronic Video Games Servicer Goal (LTG) pt will regain full 5/5 elbow extension strength which allows him to perform bench press 200lbs again. 07/01-improved to 4+ LTG Duration 6 weeks quickdash Impairment pt scores 15.9 on quickdash Short Term Goal (STG) pt will show improved mobility and strength to score <10 on quickdash 07/01-n/t STG Duration 3 weeks Electronic Video Games Servicer Goal (LTG) pt will show improved mobility and strength to score <5 on quickdash which allows him to perform his work duties without increased discomfort LTG Duration 6 weeks Assessment Summary Assessment Pt has had a lot of work days that have been more difficult and had to sleep in supine. Pt had mult trigger points post that inc symptoms into UE today. Improved soft tissue mobility w/trigger point release but notable triceps symptoms after manual ( although pt did not he came in w/signficiant symptoms too). After manual and mechanical traction, pt had no symptoms. Physical Therapy Plan Frequency and Duration Frequency of Treatment 1x/Week Duration of Treatment 2 months Plan of Care Start Date 07/01/21 Plan of Care End Date 09/01/21 Next Visit Focus/Plan Next Note Type Progress Note Next Visit Plan assess response to traction, trace along radial n to work on dec triceps discomfort, cont to work on postural stability. Upper tspine mobility
--- NOTE | 2021-08-26 15:01 | PT.OTN ---
Current Diagnoses Brachial plexus disorders (08/26/21) Physical Therapy Treatment Note PT-OP-A Visit Information Start: 05/23/21 09:05 Freq: Status: Active Protocol: Document 08/26/21 14:40 [facility] (Rec: 08/26/21 15:01 [facility] [id number]) Out-Patient Physical Therapy Visit Information Visit Information Visit Type Treatment Note Visit Note 12/09 Visit Start Time 13:47 Visit Stop Time 14:45 Total Visit Minutes 58 Visit Number 11 Number of GROUNDS RESTORATION SPECIALIST Visits 0 PT-OP-B Current Condition Start: 05/23/21 09:05 Freq: Status: Active Protocol: Document 05/23/21 12:37 [facility] (Rec: 05/23/21 13:13 HH [email or web address]) Current Condition History of Current Condition Onset Date this summer Current Complaints R arm radiating pain with neuro sign History of Current Condition Radha is a 40yo male here for his radiating pain and neuro sign to R arm started this summer with no known injury. He started experiencing radiating numbness/ tingling from his tricep, forearm to his dorsal side of the middle 3 fingers. Symptoms tend to present when he is stationary or with his arms overhead for a long period of time. He also notices significant weakness on elbow extension while doing bench press. No discomfort with sleeping. 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 He also weightlift 4 times/ wk who likes to overhead press, bench press and squat. 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 PT-OP-C Subjective Start: 05/23/21 09:05 Freq: Status: Active Protocol: Document 08/26/21 14:40 [facility] (Rec: 08/26/21 15:01 [facility] [id number]) OP-PT Subjective Patient Comments Patient Comments pt reports he felt great for 1 hour after traction until he had to do a lot of work again. Notes he had a good strength workout that didn't increase any symptoms and has done a lot of stretching. He has an appt to see a chiropractor PT-OP-F Manual Assessment Start: 05/23/21 09:05 Freq: Status: Active Protocol: Document 05/23/21 12:37 (Rec: 05/23/21 13:13 HH [email or web address]) Manual Assessments Soft Tissue Assessment Soft Tissue Mobility Assessment significant hypertonicty at levator scap, upper trap and teres minor. PT-OP-H Neuro Start: 05/23/21 09:05 Freq: Status: Active Protocol: Document 05/23/21 12:37 HH (Rec: 05/23/21 13:13 HH [email or web address]) Sensation Evaluation Gross Sensation Gross Sensation WNL Sensation Description Numbness,Tingling Dermatome Impairments C7,C8 Deep Tendon Reflex & Clonus Assessment Deep Tendon Reflex Bilateral Brachioradialis Deep Tendon Reflex 2+ Normal Bilateral Tricep Deep Tendon Reflex 2+ Normal Bilateral Bicep Deep Tendon Reflex 2+ Normal PT-OP-K Range of Motion Start: 05/23/21 09:05 Freq: Status: Active Protocol: Document 07/01/21 14:11 [facility] (Rec: 07/01/21 16:37 [facility] [id number]) Cervical Spine Range of Motion Cervical Spine Active Degrees Testing Position Sitting Flexion 64 Extension 47 Rotation Left 73 Rotation Right 50 Lateral Flexion Left 40 Lateral Flexion Right 32 ROM Limitations Pain PT-OP-L Special Tests Start: 05/23/21 09:05 Freq: Status: Active Protocol: Document 07/01/21 14:11 [facility] (Rec: 07/01/21 16:37 [facility] [id number]) Special Tests Neural Special Tests- Upper Body radial Test Results positive R PT-OP-M Strength Start: 05/23/21 09:05 Freq: Status: Active Protocol: Document 07/01/21 14:11 [facility] (Rec: 07/01/21 16:37 [facility] [id number]) Elbow/Forearm Strength Elbow and Forearm Manual Muscle Testing Right Flexion (C6) 5 Normal Extension (C7) 4+ Good+ Left Flexion (C6) 5 Normal Extension (C7) 5 Normal PT-OP-Q Treatments Start: 05/23/21 09:05 Freq: Status: Active Protocol: Document 08/26/21 14:40 [facility] (Rec: 08/26/21 15:01 [facility] [id number]) Manual Therapy Treatment Soft Tissue Mobilization cervical Body Location R>L scalenes & SCM & paraspinals Mobilization Type Myofascial Release,Rolling, Strumming Intensity/Depth Moderate Comments w/ cervical rot & ext UT, levator Body Location LS, UT, R Mobilization Type Myofascial Release,Sustained Pressure,Trigger Point Release Intensity/Depth Moderate Body Position Supine Comments w/R rot suboccipital Body Location R Mobilization Type Myofascial Release,Sustained Pressure,Trigger Point Release Intensity/Depth Moderate Body Position Supine Joint Mobilizations cervical Comments 1. C1 UPA FM R 2. C4 UAP FM R 3. transverse L FM C4 &5 thoracic Comments 1. UPA L T1 & UPA R T2-3 FM supine 2. transverse glide T2 & 3 FM L PT-OP-R Modalities Start: 05/23/21 09:05 Freq: Status: Active Protocol: Document 08/26/21 14:40 [facility] (Rec: 08/26/21 15:01 [facility] [id number]) Spinal Traction Traction Treatment Cervical Method Mechanical,Static Patient Position Hooklying Force Applied (Pounds) 20 Duration of Treatment (Minutes) 15 PT-OP-T Assessment and Plan Start: 05/23/21 09:05 Freq: Status: Active Protocol: Document 08/26/21 14:40 [facility] (Rec: 08/26/21 15:01 [facility] [id number]) Physical Therapy Assessment Goals cervical ROM Impairment limited cervical ROM Short Term Goal (STG) pt will show improved cervical AROM by 10 degrees without neuro sign 07/01-no major change w/ROM but no neuro sign STG Duration 4 weeks Shelter Goal (LTG) pt will be able to look up and to the side for long period of time at work without increased symptoms 07/01-symptoms only w/long hard days; much improved LTG Duration 6 weeks neuro sign Impairment numbness/ tingling to elbow and hand Short Term Goal (STG) pt will show improved neural tension to radial nerve therefore he will not experience neuro sign while reaching overhead/ sitting. 07/01-still tension STG Duration 4 weeks Shelter Goal (LTG) pt will regain full 5/5 elbow extension strength which allows him to perform bench press 200lbs again. 07/01-improved to 4+ LTG Duration 6 weeks quickdash Impairment pt scores 15.9 on quickdash Short Term Goal (STG) pt will show improved mobility and strength to score <10 on quickdash 07/01-n/t STG Duration 3 weeks Shelter Goal (LTG) pt will show improved mobility and strength to score <5 on quickdash which allows him to perform his work duties without increased discomfort LTG Duration 6 weeks Assessment Summary Assessment With supine treatment, less symptoms were inc during manaul and pt had significant improvements in passive R rotation and ext and R ext w/o symptoms. He had symptoms upon starting R rot ext prior to manual then after, no symptoms until end range and only light symptoms. Relief still w/traction. Physical Therapy Plan Frequency and Duration Frequency of Treatment 1x/Week Duration of Treatment 2 months Plan of Care Start Date 07/01/21 Plan of Care End Date 09/01/21 Next Visit Focus/Plan Next Note Type Progress Note Next Visit Plan assess response to traction, trace along radial n to work on dec triceps discomfort, cont to work on postural stability. workon cervical ext /r rot; Upper tspine mobility
--- NOTE | 2021-09-03 18:08 | PT.OTN ---
Current Diagnoses Brachial plexus disorders (09/03/21) Physical Therapy Treatment Note PT-OP-A Visit Information Start: 05/23/21 09:05 Freq: Status: Active Protocol: Document 09/03/21 14:37 [facility] (Rec: 09/03/21 18:08 [facility] [id number]) Out-Patient Physical Therapy Visit Information Visit Information Visit Type Progress Note Visit Note 01/09 Visit Start Time 14:35 Visit Stop Time 15:31 Total Visit Minutes 56 Visit Number 12 Number of RESEARCH AND DEVELOPMENT SCIENTIST Visits 0 PT-OP-B Current Condition Start: 05/23/21 09:05 Freq: Status: Active Protocol: Document 05/23/21 12:37 (Rec: 05/23/21 13:13 HH [email or web address]) Current Condition History of Current Condition Onset Date this summer Current Complaints R arm radiating pain with neuro sign History of Current Condition Radha is a 40yo male here for his radiating pain and neuro sign to R arm started this summer with no known injury. He started experiencing radiating numbness/ tingling from his tricep, forearm to his dorsal side of the middle 3 fingers. Symptoms tend to present when he is stationary or with his arms overhead for a long period of time. He also notices significant weakness on elbow extension while doing bench press. No discomfort with sleeping. 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 He also weightlift 4 times/ wk who likes to overhead press, bench press and squat. 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 PT-OP-C Subjective Start: 05/23/21 09:05 Freq: Status: Active Protocol: Document 09/03/21 14:37 [facility] (Rec: 09/03/21 18:08 [facility] [id number]) OP-PT Subjective Patient Comments Patient Comments Pt reports a lot of hard days at work this past week that have been really tough. He has been doing pretty good today. He is feeling more loose overall. PT-OP-F Manual Assessment Start: 05/23/21 09:05 Freq: Status: Active Protocol: Document 05/23/21 12:37 (Rec: 05/23/21 13:13 HH [email or web address]) Manual Assessments Soft Tissue Assessment Soft Tissue Mobility Assessment significant hypertonicty at levator scap, upper trap and teres minor. PT-OP-H Neuro Start: 05/23/21 09:05 Freq: Status: Active Protocol: Document 05/23/21 12:37 (Rec: 05/23/21 13:13 [email or web address]) Sensation Evaluation Gross Sensation Gross Sensation WNL Sensation Description Numbness,Tingling Dermatome Impairments C7,C8 Deep Tendon Reflex & Clonus Assessment Deep Tendon Reflex Bilateral Brachioradialis Deep Tendon Reflex 2+ Normal Bilateral Tricep Deep Tendon Reflex 2+ Normal Bilateral Bicep Deep Tendon Reflex 2+ Normal PT-OP-K Range of Motion Start: 05/23/21 09:05 Freq: Status: Active Protocol: Document 09/03/21 14:37 [facility] (Rec: 09/03/21 18:08 [facility] [id number]) Cervical Spine Range of Motion Cervical Spine Active Degrees Testing Position Sitting Flexion 65 Extension 55 Rotation Left 65 Rotation Right 63 Lateral Flexion Left 40 Lateral Flexion Right 39 ROM Limitations Pain Comments ext inc symptoms into UE PT-OP-L Special Tests Start: 05/23/21 09:05 Freq: Status: Active Protocol: Document 09/03/21 14:37 [facility] (Rec: 09/03/21 18:08 [facility] [id number]) Special Tests Neural Special Tests- Upper Body ulnar Test Results neg median Test Results mild positive w/inc pull w/SB in full position radial Test Results neg PT-OP-M Strength Start: 05/23/21 09:05 Freq: Status: Active Protocol: Document 09/03/21 14:37 [facility] (Rec: 09/03/21 18:08 [facility] [id number]) Elbow/Forearm Strength Elbow and Forearm Manual Muscle Testing Right Extension (C7) 4+ Good+ PT-OP-Q Treatments Start: 05/23/21 09:05 Freq: Status: Active Protocol: Document 09/03/21 14:37 [facility] (Rec: 09/03/21 18:08 [facility] [id number]) Gym Equipment Cable Column (Body Solid) tricep ext Details max cues for scap stability but pt unable Resistance 2 Reps/Time 15 row Details max cues for scap retract/ depress Resistance 3 Reps/Time 20 Therapeutic Exercises Standing Exercises retraction Standing Exercise Name w/HAbd then flex in mirror Side bilateral Equipment Used L1 Reps/Minutes 10 Comments max cues for no scap elevation tricep Standing Exercise Name max cues for scap stability & position Side right Equipment Used L1 Reps/Minutes 20 Self-Care/Home Management Treatment Education Other Education edu to pt re: importance of scap depression vs elevation for stability. Discussed some alternative treatments: DO, dry needling, acupuncture and given names of people in the community. Edu to pt to ice when sore. PT-OP-R Modalities Start: 05/23/21 09:05 Freq: Status: Active Protocol: Document 09/03/21 14:37 [facility] (Rec: 09/03/21 18:08 [facility] [id number]) Spinal Traction Traction Treatment Cervical Method Mechanical,Static Patient Position Hooklying Force Applied (Pounds) 22 Duration of Treatment (Minutes) 15 PT-OP-T Assessment and Plan Start: 05/23/21 09:05 Freq: Status: Active Protocol: Document 09/03/21 14:37 [facility] (Rec: 09/03/21 18:08 [facility] [id number]) Physical Therapy Assessment Goals cervical ROM Impairment limited cervical ROM Short Term Goal (STG) pt will show improved cervical AROM by 10 degrees without neuro sign 07/01-no major change w/ROM but no neuro sign 09/03-good ROM but ext causes neuro issues in RUE STG Duration 10/01/21 Group Home Goal (LTG) pt will be able to look up and to the side for long period of time at work without increased symptoms 07/01-symptoms only w/long hard days; much improved 09/03-pt has had a lot of hard days of work but is still having symptoms LTG Duration 11/01/21 neuro sign Impairment numbness/ tingling to elbow and hand Short Term Goal (STG) pt will show improved neural tension to radial nerve therefore he will not experience neuro sign while reaching overhead/ sitting. 07/01-still tension STG Duration achieved 09/03 Kiln Firer Goal (LTG) pt will regain full 5/5 elbow extension strength which allows him to perform bench press 200lbs again. 07/01-improved to 4+ 09/03-no change since dec LTG Duration 11/01/21 quickdash Impairment pt scores 15.9 on quickdash Short Term Goal (STG) pt will show improved mobility and strength to score <10 on quickdash 07/01-n/t STG Duration 3 weeks Group Home Goal (LTG) pt will show improved mobility and strength to score <5 on quickdash which allows him to perform his work duties without increased discomfort LTG Duration 6 weeks Assessment Summary Assessment Pt has made good progress w/ ROM and feeling of flexibility /mobility, but triceps is still weak and pt does have dec scap stability and required a lot of cues when going over exercises. This likey makes inc neck tension to inc cervical/UT pain and inc radicular symptoms. He now has good rotation and SB and improved ext but does get nerve pain into R UE w/ext still. Cont PT to work on this as this is a large part of his job. Physical Therapy Plan Frequency and Duration Frequency of Treatment 1x/Week Duration of Treatment 2 months Plan of Care Start Date 09/03/21 Plan of Care End Date 11/01/21 Therapeutic Interventions Therapeutic Interventions Home Exercise Program,Joint Mobilizations,Manual Therapy, Neuromuscular Re-education, Patient/Caregiver Education, Self-Care/Home Management,Soft Tissue Mobilization,Taping, Therapeutic Activities, Therapeutic Exercises Modalities Cold Pack/Ice Massage,Electric Stimulation,Hot Packs, Traction- Mechanical, Ultrasound Next Visit Focus/Plan Next Note Type Treatment Note Next Visit Plan work on ability to extend w/o neural symptoms, cont to work pt upper thoracic mobility, work on pt appropriate scap activation
--- NOTE | 2021-09-03 18:08 | PT.OPPOC ---
Physical, Occupational & Speech Therapy At [facility] Current Diagnoses Brachial plexus disorders (09/03/21) Visit Care Team Role Provider Type Sylvie Milner ND Attending Provider Non-Staff Primary Care Provider Referring Provider Specialty: Naturopathy Address: [facility], [address] [place] [address], [id number] Email: Plan Of Care PT-OP-T Assessment and Plan Start: 05/23/21 09:05 Freq: Status: Active Protocol: Document 09/03/21 14:37 [facility] (Rec: 09/03/21 18:08 [facility] [id number]) Physical Therapy Assessment Goals cervical ROM Impairment limited cervical ROM Short Term Goal (STG) pt will show improved cervical AROM by 10 degrees without neuro sign 07/01-no major change w/ROM but no neuro sign 09/03-good ROM but ext causes neuro issues in RUE STG Duration 10/01/21 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 07/01-improved to 4+ 09/03-no change since dec LTG Duration 11/01/21 quickdash Impairment pt scores 15.9 on quickdash Short Term Goal (STG) pt will show improved mobility and strength to score <10 on quickdash 07/01-n/t STG Duration 3 weeks Senior Care Goal (LTG) pt will show improved mobility and strength to score <5 on quickdash which allows him to perform his work duties without increased discomfort LTG Duration 6 weeks Assessment Summary Assessment Pt has made good progress w/ ROM and feeling of flexibility /mobility, but triceps is still weak and pt does have dec scap stability and required a lot of cues when going over exercises. This likey makes inc neck tension to inc cervical/UT pain and inc radicular symptoms. He now has good rotation and SB and improved ext but does get nerve pain into R UE w/ext still. Cont PT to work on this as this is a large part of his job. Physical Therapy Plan Frequency and Duration Frequency of Treatment 1x/Week Duration of Treatment 2 months Plan of Care Start Date 09/03/21 Plan of Care End Date 11/01/21 Therapeutic Interventions Therapeutic Interventions Home Exercise Program,Joint Mobilizations,Manual Therapy, Neuromuscular Re-education, Patient/Caregiver Education, Self-Care/Home Management,Soft Tissue Mobilization,Taping, Therapeutic Activities, Therapeutic Exercises Modalities Cold Pack/Ice Massage,Electric Stimulation,Hot Packs, Traction- Mechanical, Ultrasound Next Visit Focus/Plan Next Note Type Treatment Note Next Visit Plan work on ability to extend w/o neural symptoms, cont to work pt upper thoracic mobility, work on pt appropriate scap activation Plan of Care Dates Plan of Care Start Date 09/03/21 Plan of Care End Date 11/01/21 Electronically Signed by: Andria Diaz, PT 09/03/21 [id number] Please Sign and Return: I have reviewed this Plan of Care and certify that the skilled therapy services above are required to meet the patient?s needs. Physician Signature Date Printed Name and Credentials Clinical Instructor Signature Printed Name and Credentials
--- NOTE | 2021-11-27 16:48 | PT.OPDS ---
Current Diagnoses Brachial plexus disorders (09/03/21) Visit Care Team Role Provider Type Sylvie KRISTIN Milner Attending Provider Non-Staff Primary Care Provider Referring Provider Specialty: Naturopathy Address: [facility], [address] [place] [address], [id number] Email: Visit Number Visit Number 12 Discharge Summary PT-OP-B Current Condition Start: 05/23/21 09:05 Freq: Status: Active Protocol: Document 05/23/21 12:37 (Rec: 05/23/21 13:13 [email or web address]) Current Condition History of Current Condition Onset Date this summer Current Complaints R arm radiating pain with neuro sign History of Current Condition Radha is a 40yo male here for his radiating pain and neuro sign to R arm started this summer with no known injury. He started experiencing radiating numbness/ tingling from his tricep, forearm to his dorsal side of the middle 3 fingers. Symptoms tend to present when he is stationary or with his arms overhead for a long period of time. He also notices significant weakness on elbow extension while doing bench press. No discomfort with sleeping. 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 He also weightlift 4 times/ wk who likes to overhead press, bench press and squat. Personal Factors Other Personal Factors That May Effect pt works as a bridge painter which Therapy/Recovery requires him to reach overhead for long period of time daily . PT-OP-C Subjective Start: 05/23/21 09:05 Freq: Status: Active Protocol: Document 09/03/21 14:37 [facility] (Rec: 09/03/21 18:08 [facility] [id number]) OP-PT Subjective Patient Comments Patient Comments Pt reports a lot of hard days at work this past week that have been really tough. He has been doing pretty good today. He is feeling more loose overall. PT-OP-F Manual Assessment Start: 05/23/21 09:05 Freq: Status: Active Protocol: Document 05/23/21 12:37 (Rec: 05/23/21 13:13 [email or web address]) Manual Assessments Soft Tissue Assessment Soft Tissue Mobility Assessment significant hypertonicty at levator scap, upper trap and teres minor. PT-OP-H Neuro Start: 05/23/21 09:05 Freq: Status: Active Protocol: Document 05/23/21 12:37 (Rec: 05/23/21 13:13 HH [email or web address]) Sensation Evaluation Gross Sensation Gross Sensation WNL Sensation Description Numbness,Tingling Dermatome Impairments C7,C8 Deep Tendon Reflex & Clonus Assessment Deep Tendon Reflex Bilateral Brachioradialis Deep Tendon Reflex 2+ Normal Bilateral Tricep Deep Tendon Reflex 2+ Normal Bilateral Bicep Deep Tendon Reflex 2+ Normal PT-OP-K Range of Motion Start: 05/23/21 09:05 Freq: Status: Active Protocol: Document 09/03/21 14:37 [facility] (Rec: 09/03/21 18:08 [facility] [id number]) Cervical Spine Range of Motion Cervical Spine Active Degrees Testing Position Sitting Flexion 65 Extension 55 Rotation Left 65 Rotation Right 63 Lateral Flexion Left 40 Lateral Flexion Right 39 ROM Limitations Pain Comments ext inc symptoms into UE PT-OP-L Special Tests Start: 05/23/21 09:05 Freq: Status: Active Protocol: Document 09/03/21 14:37 [facility] (Rec: 09/03/21 18:08 [facility] [id number]) Special Tests Neural Special Tests- Upper Body ulnar Test Results neg median Test Results mild positive w/inc pull w/SB in full position radial Test Results neg PT-OP-M Strength Start: 05/23/21 09:05 Freq: Status: Active Protocol: Document 09/03/21 14:37 [facility] (Rec: 09/03/21 18:08 [facility] [id number]) Elbow/Forearm Strength Elbow and Forearm Manual Muscle Testing Right Extension (C7) 4+ Good+ PT-OP-T Assessment and Plan Start: 05/23/21 09:05 Freq: Status: Active Protocol: Document 11/27/21 16:48 [facility] (Rec: 11/27/21 16:48 [facility] [id number]) Physical Therapy Assessment Assessment Summary Assessment Pt has no longer been attending PT. He was starting to plateau and was given information for other providers to try for relief. DC PT d/t no longer attending. Physical Therapy Plan Discharge Physical Therapy Discharge Reasons No Longer Attending PT
== END 2021-11-28 09:45 ==
LOC: PHYS 14:30
PROVIDERS: PCP Naturopath; Referring Provider Naturopath; Visit Provider Naturopath
DX: G54.0 Brachial plexus disorders (principal)
CPT/HCPCS: 97012; 97110; 97140; 97161; 97535

== ENCOUNTER → 2022-02-17 10:27 | Outpatient (CLI) | payer OTHER, MEDICAID, SELFPAY ==
[2022-02-17 11:53] LABS: Add Manual Diff / Slide Review NO; Basophils Absolute Auto 0 /uL (0-100); Eosinophils Absolute Auto 200 /uL (0-450); Eosinophils Percent Auto 4.2 % (2-4); Hematocrit 40.6 % (41-53); Hemoglobin 13.3 g/dL (13.5-17.5); Lymphocytes Absolute Auto 1000 /uL (1100-4500); Lymphocytes Percent Auto 28.2 % (25-40); Mean Corpuscular HGB Conc 32.8 % (30-36); Mean Corpuscular Hemoglobin 27.6 PG (26-34); Mean Corpuscular Volume 84.1 fL (80-100); Monocytes Absolute Auto 500 /uL (0-900); Monocytes Percent Auto 12.7 % (3-14); Neutrophils Absolute Auto 2000 /uL (1500-7000); Neutrophils Percent Auto 53.9 % (50-75); Platelet Count 244 X10^3/uL (150-400); Red Blood Cell Count 4.83 X10^6/uL (4.5-5.9); Red Cell Distribution Width 15.7 % (11.6-14.8); White Blood Cell Count 3.7 X10^3/uL (4.5-11.0)
[2022-02-17 15:37] LABS: BUN Creatinine Ratio 12.2 (6-22); Blood Urea Nitrogen 9 mg/dL (9-20); Calcium 9.2 mg/dL (8.4-10.2); Carbon Dioxide 28 mmol/L (22-32); Chloride 102 mmol/L (98-107); Cholesterol 222 mg/dL (140-199); Estimated Glomerular Filt Rate > 60 mL/min (>60); Glucose 94 mg/dL (70-100); HDL Cholesterol 71 mg/dL (40-60); HEMOLYSIS < 15 (0-50); LDL Cholesterol Calculated 140 mg/dL (<100); Potassium 4.4 mmol/L (3.4-5.1); Sodium 139 mmol/L (137-145); Triglycerides 56 mg/dL (35-150)
== END ==
PROVIDERS: PCP Family Medicine; Referring Provider Family Medicine; Visit Provider Family Medicine
DX: D50.0 Iron deficiency anemia secondary to blood loss (chronic) (principal); K64.8 Other hemorrhoids; Z13.220 Encounter for screening for lipoid disorders
CPT/HCPCS: 36415; 80048; 80061; 85025

== ENCOUNTER → 2022-08-24 10:33 | Outpatient (CLI) | payer OTHER, MEDICAID, SELFPAY ==
[2022-08-24 11:22] LABS: Semen Sperm Prescence Post-Vas Absent (ABSENT)
== END ==
PROVIDERS: PCP Family Medicine; Referring Provider Specialist; Visit Provider Specialist
DX: Z98.52 Vasectomy status (principal)
CPT/HCPCS: 89321

== ENCOUNTER → 2023-04-20 09:50 | Outpatient (CLI) | payer OTHER, SELFPAY ==
[2023-04-20 10:45] LABS: Add Manual Diff / Slide Review NO; Basophils Absolute Auto 0 /uL (0-100); Basophils Percent Auto 1.2 % (0-2); Eosinophils Absolute Auto 100 /uL (0-450); Hematocrit 35.1 % (41-53); Hemoglobin 11.3 g/dL (13.5-17.5); Lymphocytes Absolute Auto 1100 /uL (1100-4500); Lymphocytes Percent Auto 30.9 % (25-40); Mean Corpuscular HGB Conc 32.2 % (30-36); Mean Corpuscular Volume 71.5 fL (80-100); Monocytes Absolute Auto 500 /uL (0-900); Monocytes Percent Auto 13.9 % (3-14); Neutrophils Absolute Auto 1900 /uL (1500-7000); Platelet Count 310 X10^3/uL (150-400); Red Blood Cell Count 4.91 X10^6/uL (4.5-5.9); Red Cell Distribution Width 17.9 % (11.6-14.8); White Blood Cell Count 3.7 X10^3/uL (4.5-11.0)
[2023-04-20 11:05] LABS: Alanine Aminotransferase 21 IU/L (<50); Albumin 4.3 g/dL (3.5-5.0); Albumin Globulin Ratio 1.7 (1.0-2.8); Alkaline Phosphatase 72 U/L (38-126); Aspartate Aminotransferase 22 IU/L (17-59); Bilirubin Total 0.4 mg/dL (0.2-1.3); Blood Urea Nitrogen 15 mg/dL (9-20); Calcium 9.5 mg/dL (8.4-10.2); Carbon Dioxide 27 mmol/L (22-32); Chloride 102 mmol/L (98-107); Cholesterol 194 mg/dL (140-199); Estimated Glomerular Filt Rate > 60 mL/min (>60); Globulin 2.5 g/dL (1.7-4.1); Glucose 99 mg/dL (70-100); HDL Cholesterol 69 mg/dL (40-60); HEMOLYSIS < 15 (0-50); LDL Cholesterol Calculated 116 mg/dL (<100); Potassium 4.6 mmol/L (3.4-5.1); Sodium 137 mmol/L (137-145); Total Protein 6.8 g/dL (6.3-8.2); Triglycerides 45 mg/dL (35-150)
== END ==
PROVIDERS: PCP Family Medicine; Referring Provider Physician Assistant; Visit Provider Physician Assistant
DX: D50.0 Iron deficiency anemia secondary to blood loss (chronic) (principal)
CPT/HCPCS: 36415; 80053; 80061; 85025

== ENCOUNTER → 2023-06-24 07:45 | Outpatient (CLI) | payer OTHER, SELFPAY ==
--- NOTE | 2023-06-24 07:47 | DI.RAD.S_ITS ---
PROCEDURE: XR SHOULDER LT MIN 2V INDICATIONS: Left clavicle anomaly TECHNIQUE: 3 views of the shoulder were acquired. COMPARISON: None. FINDINGS: Bones: No fractures or dislocations. Moderate hypertrophic osteoarthritic changes of the left acromioclavicular joint. No suspicious bony lesions. Visualized ribs appear intact. Soft tissues: No suspicious soft tissue calcifications. IMPRESSION: Moderate hypertrophic osteoarthritic changes of the left acromioclavicular joint. Left shoulder without acute fracture or dislocation. Dictated by: Piyush Menendez M.D. on 06/24/2023 at 9:29 Approved by: Piyush Menendez M.D. on 06/24/2023 at 9:30
== END ==
PROVIDERS: PCP Family Medicine; Referring Provider Family Medicine; Visit Provider Family Medicine
DX: M25.512 Pain in left shoulder (principal); M95.8 Other specified acquired deformities of musculoskeletal system; G89.29 Other chronic pain
CPT/HCPCS: 73030